=== PATIENT | female | born 1955 | race Caucasian/White ===

== ENCOUNTER 2016-11-14 15:37 | Observation (INO) | payer MEDICARE ==
[2016-11-14 15:45] VITALS: BMI 40.7
[2016-11-14] MEDS ORDERED: KETOROLAC TROMETHAMINE 30 MG/1 ML VIAL IM ONE (16:39)
--- NOTE | 2016-11-14 16:39 | PDOC ---
History of Present Illness - General Chief Complaint: Pain Stated Complaint: LT ANKLE PAIN, SWOLLEN Time Seen by Provider: 11/14/16 16:31 History Source: Patient Exam Limitations: No Limitations - History of Present Illness Initial Comments: 11/14/16 16:39 CHIEF COMPLAINT: Ankle pain HISTORY OF PRESENT ILLNESS: This is a 60 year old female with a history of borderline DM, dyslipidemia, bipolar disorder, right breast ca (s/p lumpectomy 2008, on Femara), and distant history of DVT (, 35 yrs ago) who presents complaining of non-traumatic left ankle pain and swelling for 1 1/2 weeks. She reports that the pain is worsening, limits weight bearing, and "shoots" up the leg. She denies fevers/chills or any other systemic symptoms. V/s on arrival are notable for BP 153/100. REVIEW OF SYSTEMS: GENERAL/CONSTITUTIONAL: No fever or chills. No weakness. No weight change. HEAD, EYES, EARS, NOSE AND THROAT: No change in vision. No ear pain or discharge. No sore throat. CARDIOVASCULAR: Intermittent chest pain for 3 months. RESPIRATORY: No cough, wheezing, or shortness of breath. GASTROINTESTINAL: No nausea, vomiting, diarrhea or constipation. GENITOURINARY: No dysuria, frequency, or change in urination. MUSCULOSKELETAL: See HPI. SKIN: No rash or easy bruising. NEUROLOGIC: No headache, vertigo, loss of consciousness, or loss of sensation. PSYCHIATRIC: No depression or anxiety. ENDOCRINE: No increased thirst. No abnormal weight change. HEMATOLOGIC/LYMPHATIC: No anemia, easy bleeding, or history of blood clots. ALLERGIC/IMMUNOLOGIC: No hives or skin allergy. No latex allergy. PHYSICAL EXAM: GENERAL: The patient is awake, alert, and fully oriented, in no acute distress. HEAD: Normal with no signs of trauma. ENT: Pupils equal, round and reactive to light, extraocular movements intact, sclera anicteric, conjunctiva clear. Neck supple. LUNGS: Clear to auscultation bilaterally. Normal excursion. No respiratory distress or use of accessory muscles. CV: RRR, S1/S2, no MRG. Cap refill < 2 sec. ABDOMEN: Soft, non-distended, non-tender. EXTREMITIES: Tenderness and swelling at left lateral malleolus, tenderness at left lateral calf. Pain with flexion of foot. No erythema. NEUROLOGICAL: Normal speech, normal gait. CN II-XII grossly intact. PSYCH: Normal mood, normal affect. SKIN: Warm, dry, normal turgor, no rashes or lesions noted. Past History - Past Medical History Allergies/Adverse Reactions: Allergies Allergy/AdvReac Type Severity Reaction Status Date / Time morphine AdvReac Vomiting Verified 11/14/16 15:42 Home Medications: Ambulatory Orders Lamotrigine [Lamictal] 200 mg PO DAILY 12/13/12 Letrozole [Femara -] 2.5 mg PO DAILY 12/13/12 Venlafaxine HCl [Effexor] 300 mg PO DAILY 12/13/12 Cardiac Disorders: Yes (murmur) Diabetes: Yes (BORDERLINE) GI Disorders: Yes (diverticulosis) Hypercholesterolemia: Yes Psychiatric Problems: Yes (DEPRESSION, POST TRAMATIC STRESS SYNDROME) Suicide Attempt (Hx): No Thyroid Disease: No - Surgical History Orthopedic Surgery: Yes (B/L MENISUS REPAIR, ) - Psycho/Social/Smoking Cessation Hx Anxiety: Yes Suicidal Ideation: No Smoking Status: No Smoking History: Never smoked Have you smoked in the past 12 months: No Number of Cigarettes Smoked Daily: 0 Information on smoking cessation initiated: No Hx Alcohol Use: No Drug/Substance Use Hx: No Substance Use Type: None Hx Substance Use Treatment: No *Physical Exam - Vital Signs Last Vital Signs Temp Pulse Resp BP Pulse Ox 98 F 86 18 153/100 95 11/14/16 15:42 11/14/16 15:42 11/14/16 15:42 11/14/16 15:42 11/14/16 15:42 ED Treatment Course - LABORATORY CBC & Chemistry Diagram: 11/15/16 05:35 11/15/16 05:35 - RADIOLOGY Radiology Studies Ordered: Category Date Time Status DUPLEX VASCUL US-1 LEG [US] Stat Ultrasound 11/14/16 16:38 Ordered Medical Decision Making - Medical Decision Making 11/14/16 16:49 A/P: 60 year old female with non-traumatic ankle/calf pain. 1. Ankle xray 2. Labs including CBC, comp, ESR, uric acid 3. Duplex u/s to r/o DVT 4. Toradol 30mg IM forpain 5. Re-assess 11/14/16 18:47 Ultrasound reveals DVT in the left common femoral vein per Imaging in school suspension aide report. Patient re-evaluated and now reports chest pain. Will obtain PT/INR, cardiac profile, BNP EKG ordered CTA to r/o PE ordered Lovenox 100mg sq given Will transfer to Main ED for further management - discussed with Dr. Campbell 11/14/16 19:49 Troponin <0.02 BNP within normal limits at 89 *DC/Admit/Observation/Transfer Diagnosis at time of Disposition: DVT (deep venous thrombosis) Qualifiers: DVT location: lower extremity Affected thrombotic vein of extremity: femoral Laterality: left Chronicity: acute Qualified Code(s): I82.412 - Acute embolism and thrombosis of left femoral vein - Referrals
[2016-11-14] MEDS ORDERED: KETOROLAC TROMETHAMINE 30 MG/1 ML VIAL ONE (16:48)
[2016-11-14 16:49] LABS: BASOPHIL 0.7 % (0-2.0); EOSINOPHIL 2.2 % (0-4.5); MCH 29.6 pg (25.7-33.7); MCHC 32.9 g/dl (32.0-36.0); MEAN PLT VOLUME 8.4 fl (7.5-11.1); NEUTROPHILS 55.7 % (42.8-82.8); PLATELET COUNT 298 K/MM3 (134-434); RDW 14.1 % (11.6-15.6); WHITE BLOOD COUNT 8.1 K/mm3 (4.0-10.0)
[2016-11-14 17:20] LABS: COCKROFT - GAULT 110.84; CREATININE 0.9 mg/dL (0.55-1.02); URIC ACID 3.5 mg/dL (2.6-7.2)
[2016-11-14] MEDS ORDERED: ENOXAPARIN NA (PORCINE) 100 MG/1 ML DISP.SYRIN SQ ONE ×2 (18:48→19:00)
[2016-11-14 19:15] LABS: INR 0.96 (0.82-1.09); PROTHROMBIN TIME (PATIENT) 10.6 SEC (9.98-11.88)
[2016-11-14 19:32] LABS: TROPONIN I < 0.02 ng/ml (0.00-0.05)
--- NOTE | 2016-11-14 19:52 | PDOC ---
*Physical Exam - Vital Signs Last Vital Signs Temp Pulse Resp BP Pulse Ox 98 F 86 18 153/100 95 11/14/16 15:42 11/14/16 15:42 11/14/16 15:42 11/14/16 15:42 11/14/16 15:42 Heart Score/ECG Review #1 ECG reviewed & interpreted by me at: 19:08 General ECG Interpretation: Sinus Rhythm, Normal Rate (78), Normal Intervals ( qtc 456), No acute ischemic changes ED Treatment Course - LABORATORY CBC & Chemistry Diagram: 11/14/16 16:41 11/14/16 16:41 - ADDITIONAL ORDERS Additional order review: Laboratory Results 11/14/16 11/14/16 11/14/16 18:55 18:55 16:41 INR 0.96 Sodium 142 Potassium 4.2 Chloride 105 Carbon Dioxide 31 Anion Gap 6 L BUN 13 Creatinine 0.9 Random Glucose 156 H D Uric Acid 3.5 Calcium 9.0 Creatine Kinase 124 Troponin I < 0.02 B-Natriuretic Peptide 88.96 11/14/16 16:41 RBC 4.70 MCV 90.0 MCHC 32.9 RDW 14.1 MPV 8.4 Neutrophils % 55.7 Lymphocytes % 34.5 Monocytes % 6.9 Eosinophils % 2.2 Basophils % 0.7 D - Medications Given in the ED: ED Medications Discontinued Medications Generic Name Dose Route Start Last Admin Trade Name Freq PRN Reason Stop Dose Admin Enoxaparin Sodium 100 mg 11/14/16 18:48 11/14/16 19:12 Lovenox - SQ 11/14/16 18:49 100 mg ONCE ONE Administration Ketorolac Tromethamine 30 mg 11/14/16 16:39 11/14/16 16:51 Toradol Injection - IM 11/14/16 16:40 30 mg ONCE ONE Administration Medical Decision Making - Medical Decision Making 11/14/16 19:50 Patient seen and evaluated with the nurse practitioner. I agree with the overall evaluation, assessment, and management with the following summary of visit: 60y/o presented to [facility] with atraumatic ankle swelling, diagnosed with DVT on ultrasound. Later reported chest discomfort. VS normal, started on Lovenox in [facility] for DVT. Troponin negative, EKG without signs of strain, well appearing. Plan is to admit for chest pain observation, CTA chest pending. 11/14/16 21:07 CTA negative for PE or other acute process. Accepted for obs tele by Dr. Tello for further monitoring of chest pain. *DC/Admit/Observation/Transfer Diagnosis at time of Disposition: Deep vein thrombosis (DVT) Qualifiers: DVT location: lower extremity Affected thrombotic vein of extremity: femoral Laterality: left Chronicity: acute Qualified Code(s): I82.412 - Acute embolism and thrombosis of left femoral vein - Discharge Dispostion Condition at time of disposition: Fair Admit: Yes - Referrals Referrals: Tennille Diehl [Primary Care Provider] -
--- NOTE | 2016-11-14 19:54 | HP ---
CHIEF COMPLAINT: PCP: HISTORY OF PRESENT ILLNESS: ER course was notable for: (1) (2) (3) Recent Travel: PAST MEDICAL HISTORY: PAST SURGICAL HISTORY: Social History: Smoking: Alcohol: Drugs: Family History: Allergies morphine Adverse Reaction (Verified 11/14/16 15:42) Vomiting HOME MEDICATIONS: Home Medications Medication Instructions Recorded Lamotrigine [Lamictal] 300 mg PO DAILY 12/13/12 Letrozole [Femara -] 2.5 mg PO DAILY 12/13/12 Venlafaxine HCl [Effexor] 300 mg PO DAILY 12/13/12 Aspirin [ASA -] 81 mg PO DAILY #0 tab.chew 12/16/12 Ciprofloxacin HCl [Cipro] 500 mg PO BID #14 tablet 04/19/16 Metronidazole [Flagyl -] 500 mg PO TID #21 tablet 04/19/16 REVIEW OF SYSTEMS CONSTITUTIONAL: Absent: fever, chills, diaphoresis, generalized weakness, malaise, loss of appetite, weight change HEENT: Absent: rhinorrhea, nasal congestion, throat pain, throat swelling, difficulty swallowing, mouth swelling, ear pain, eye pain, visual changes CARDIOVASCULAR: Absent: chest pain, syncope, palpitations, irregular heart rate, lightheadedness , peripheral edema RESPIRATORY: Absent: cough, shortness of breath, dyspnea with exertion, orthopnea, wheezing, stridor, hemoptysis GASTROINTESTINAL: Absent: abdominal pain, abdominal distension, nausea, vomiting, diarrhea, constipation, melena, hematochezia GENITOURINARY: Absent: dysuria, frequency, urgency, hesitancy, hematuria, flank pain, genital pain MUSCULOSKELETAL: Absent: myalgia, arthralgia, joint swelling, back pain, neck pain SKIN: Absent: rash, itching, pallor HEMATOLOGIC/IMMUNOLOGIC: Absent: easy bleeding, easy bruising, lymphadenopathy, frequent infections ENDOCRINE: Absent: unexplained weight gain, unexplained weight loss, heat intolerance, cold intolerance NEUROLOGIC: Absent: headache, focal weakness or paresthesias, dizziness, unsteady gait, seizure, mental status changes, bladder or bowel incontinence PSYCHIATRIC: Absent: anxiety, depression, suicidal or homicidal ideation, hallucinations. PHYSICAL EXAMINATION Vital Signs - 24 hr 11/14/16 15:42 Temperature 98 F Pulse Rate 86 Respiratory 18 Rate Blood Pressure 153/100 O2 Sat by Pulse 95 Oximetry (%) GENERAL: Awake, alert, and fully oriented, in no acute distress. HEAD: Normal with no signs of trauma. EYES: Pupils equal, round and reactive to light, extraocular movements intact, sclera anicteric, conjunctiva clear. No lid lag. EARS, NOSE, THROAT: Ears normal, nares patent, oropharynx clear without exudates. Moist mucous membranes. NECK: Normal range of motion, supple without lymphadenopathy, JVD, or masses. LUNGS: Breath sounds equal, clear to auscultation bilaterally. No wheezes, and no crackles. No accessory muscle use. HEART: Regular rate and rhythm, normal S1 and S2 without murmur, rub or gallop. ABDOMEN: Soft, nontender, not distended, normoactive bowel sounds, no guarding, no rebound, no masses. No hepatomegaly or splenomegaly. MUSCULOSKELETAL: Normal range of motion at all joints. No bony deformities or tenderness. No CVA tenderness. UPPER EXTREMITIES: 2+ pulses, warm, well-perfused. No cyanosis. No clubbing. No peripheral edema. LOWER EXTREMITIES: 2+ pulses, warm, well-perfused. No calf tenderness. No peripheral edema. NEUROLOGICAL: Cranial nerves II-XII intact. Normal speech. Normal gait. PSYCHIATRIC: Cooperative. Good eye contact. Appropriate mood and affect. SKIN: Warm, dry, normal turgor, no rashes or lesions noted, normal capillary refill. Laboratory Results - last 24 hr 11/14/16 11/14/16 11/14/16 16:41 16:41 18:55 WBC 8.1 RBC 4.70 Hgb 13.9 Hct 42.3 MCV 90.0 MCHC 32.9 RDW 14.1 Plt Count 298 MPV 8.4 Neutrophils % 55.7 Lymphocytes % 34.5 Monocytes % 6.9 Eosinophils % 2.2 Basophils % 0.7 D INR 0.96 Sodium 142 Potassium 4.2 Chloride 105 Carbon Dioxide 31 Anion Gap 6 L BUN 13 Creatinine 0.9 Random Glucose 156 H D Uric Acid 3.5 Calcium 9.0 Creatine Kinase Troponin I B-Natriuretic Peptide 11/14/16 18:55 WBC RBC Hgb Hct MCV MCHC RDW Plt Count MPV Neutrophils % Lymphocytes % Monocytes % Eosinophils % Basophils % INR Sodium Potassium Chloride Carbon Dioxide Anion Gap BUN Creatinine Random Glucose Uric Acid Calcium Creatine Kinase 124 Troponin I < 0.02 B-Natriuretic Peptide 88.96 ASSESSMENT/PLAN:
--- NOTE | 2016-11-14 20:01 | PN ---
<Rohit Tello - Last Filed: 11/14/16 20:01> Teaching Attending Note Name of Resident: Daphnie Trevino ATTENDING PHYSICIAN STATEMENT I saw and evaluated the patient. I reviewed the resident's note and discussed the case with the resident. I agree with the resident's findings and plan as documented. SUBJECTIVE: OBJECTIVE: ASSESSMENT AND PLAN: <Kobe Hudson - Last Filed: 11/14/16 21:28> Teaching Attending Note ATTENDING PHYSICIAN STATEMENT I saw and evaluated the patient. I reviewed the resident's note and discussed the case with the resident. I agree with the resident's findings and plan as documented. SUBJECTIVE: The patient is a 60 year old female with a history of borderline DM, dyslipidemia, bipolar disorder, depression, right breast ca (s/p lumpectomy 2008 , on Femara), and prior DVT (6 months , 35 yrs ago) who presented complaining of non-traumatic left ankle pain and edema for 1 1/2 weeks. She reported that her pain is worsening and exacerbated by movement. She reported associated intermittent chest pain. She denies fevers/chills, shortness of breath, or any other systemic symptoms. OBJECTIVE: Last Vital Signs 3 Temp Pulse Resp BP Pulse Ox 98 F 78 18 140/89 99 11/14/16 15:42 11/14/16 21:03 11/14/16 21:03 11/14/16 21:03 11/14/16 21:03 Physical Exam: GEN: NAD HEENT: NCAT, PERRL BREAST: No nodules palpated on either breast. No lymph nodes in axilla CARD: RRR, S1 S2 RESP: CTAB ABD: NT, BWS x4 EXT: - CCE Labs: CBCD 3 WBC 8.1 K/mm3 (4.0-10.0) 11/14/16 16:41 RBC 4.70 M/mm3 (3.60-5.2) 11/14/16 16:41 Hgb 13.9 GM/dL (10.7-15.3) 11/14/16 16:41 Hct 42.3 % (32.4-45.2) 11/14/16 16:41 MCV 90.0 fl (80-96) 11/14/16 16:41 MCHC 32.9 g/dl (32.0-36.0) 11/14/16 16:41 RDW 14.1 % (11.6-15.6) 11/14/16 16:41 Plt Count 298 K/MM3 (134-434) 11/14/16 16:41 MPV 8.4 fl (7.5-11.1) 11/14/16 16:41 CMP 3 Sodium 142 mmol/L (136-145) 11/14/16 16:41 Potassium 4.2 mmol/L (3.5-5.1) 11/14/16 16:41 Chloride 105 mmol/L (98-107) 11/14/16 16:41 Carbon Dioxide 31 mmol/L (21-32) 11/14/16 16:41 Anion Gap 6 (8-16) L 11/14/16 16:41 BUN 13 mg/dL (7-18) 11/14/16 16:41 Creatinine 0.9 mg/dL (0.55-1.02) 11/14/16 16:41 Calcium 9.0 mg/dL (8.5-10.1) 11/14/16 16:41 Imagin. EXAM: Venous Doppler imaging of the left lower extremity HISTORY: Possible deep venous thrombosis COMPARISON: None. FINDINGS:Spectral color flow Doppler imaging of the venous system of the left lower extremity is positive for deep venous thrombosis with thrombus seen in the left common femoral vein. IMPRESSION: Findings positive for deep venous thrombosis THIS DOCUMENT HAS BEEN ELECTRONICALLY SIGNED Yuan Blackman MD 11/14/2016 18:27 EST 2. EXAM: CT angiogram of the thorax with IV contrast HISTORY:Possible pulmonary embolism COMPARISON: None. FINDINGS:Serial transaxial images of the thorax are available following intravenous contrast agent. Sagittal and coronal reformatted imaging is available. There is no aneurysmal dilatation of the aorta nor CT evidence of aortic dissection. There is no CT evidence of pulmonary embolism. No hilar or mediastinal adenopathy is seen. The lung momin are clear of an acute process. No acute osseous abnormality is seen. IMPRESSION: No CT evidence of pulmonary embolism, aortic dissection or active disease THIS DOCUMENT HAS BEEN ELECTRONICALLY SIGNED Yuan Blackman MD 11/14/2016 20:57 EST ASSESSMENT AND PLAN: The patient is a 60 year old female with a history of borderline DM, dyslipidemia, bipolar disorder, depression, right breast ca (s/p lumpectomy 2009 , on Femara), and prior DVT (6 months , 35 yrs ago) who presented with left ankle pain found to have a left leg DVT. 1. Left leg DVT- Provoked, most like med related, but since pt had 2 DVTs would consider hypercoagulable workup - Continue Lovenox BID - Consider Eliquis in AM - Would hold Femara - Patient needs immediate follow up with oncologist. - Consider outpatient hypercoagulable workup 2. BPD - Continue Lamictal - Continue Effexor 3. HLD - Continue Crestor Place in observation. Documentation prepared by Kobe Hudson, acting as medical management specialist for Dr. Rohit Tello MD.
--- NOTE | 2016-11-14 20:19 | HP ---
CHIEF COMPLAINT: "my left ankle hurts" PCP: Dr Shannon Diehl HISTORY OF PRESENT ILLNESS: This is a 60 yo F with PMH of DVT in L leg 35 yrs ago at 6 mo post s/p thrombectomy, R brast ca stage 2 s/p lumpectomy, lymph node removal, chemo, rad , On femara for 7 yrs, HLD, diverticulosis, borderline DM, bipolar, depression, who presents due to pain and swelling in L ankle x 1.5 weeks. Patient denies trauma to ankle, states pain is progressively worsening and is aggravated by moving ankle. She denies calf pain or edema. Her prior L leg dvt was treated with short term a/c and she is unaware of any thrombophilia workup. No family hx of thrombophilia, PE, DVT or stroke. She reports mild dry cough, intermittent sternal chest pain and occasional sob for several months. denies pleuritic chest pain, hemoptysis or palpitations. Her last mammogram was 1 yr ago (does not remember name of her Oncologist) and she had a negative endoscopy (aside from reflux) and colonoscopy within 1 yr. She comlains of occasional heart burn and L hand numbness. She denies recent travel, recent surgery or hospitalization. Currently no chest pain, sob, palpitations, cough, hemoptysis. ER course was notable for: (1)labs (2)ekg, chx, ankle x ray, duplex L leg, cta (3)virgen 100, toradol Recent Travel: denies PAST MEDICAL HISTORY: as above PAST SURGICAL HISTORY: R knee replacement, b/l miniscal surgery, hysterectomy, L inguinal hernia, LLE thrombectomy, lumpectomy R breast Social History: lives at home with grandchildren Smoking: denies Alcohol:denies Drugs: denies Family History: strong history if GI CA, DM, HTN Allergies morphine Adverse Reaction (Verified 11/14/16 15:42) Vomiting HOME MEDICATIONS: Home Medications Medication Instructions Recorded Lamotrigine [Lamictal] 300 mg PO DAILY 12/13/12 Letrozole [Femara -] 2.5 mg PO DAILY 12/13/12 Venlafaxine HCl [Effexor] 300 mg PO DAILY 12/13/12 Aspirin [ASA -] 81 mg PO DAILY #0 tab.chew 12/16/12 Ciprofloxacin HCl [Cipro] 500 mg PO BID #14 tablet 04/19/16 Metronidazole [Flagyl -] 500 mg PO TID #21 tablet 04/19/16 REVIEW OF SYSTEMS CONSTITUTIONAL: Absent: fever, chills, diaphoresis, generalized weakness HEENT: Absent: rhinorrhea, nasal congestion, throat pain CARDIOVASCULAR: Absent: chest pain, syncope, palpitations, irregular heart rate, lightheadedness , RESPIRATORY: Absent: cough, shortness of breath, dyspnea with exertion, orthopnea, wheezing, stridor, hemoptysis GASTROINTESTINAL: Absent: abdominal pain, abdominal distension, nausea, vomiting, diarrhea, constipation, melena, hematochezia GENITOURINARY: Absent: dysuria, flank pain MUSCULOSKELETAL: Absent: myalgia SKIN: Absent: rash, itching, pallor HEMATOLOGIC/IMMUNOLOGIC: Absent: easy bleeding, easy bruising ENDOCRINE: Absent: unexplained weight gain, unexplained weight loss, heat intolerance, cold intolerance NEUROLOGIC: Absent: headache, focal weakness or paresthesias, dizzines PSYCHIATRIC: Absent: anxiety, depression, suicidal or homicidal ideation PHYSICAL EXAMINATION Vital Signs - 24 hr 11/14/16 15:42 Temperature 98 F Pulse Rate 86 Respiratory 18 Rate Blood Pressure 153/100 O2 Sat by Pulse 95 Oximetry (%) GENERAL: Awake, alert, and fully oriented, in no acute distress. HEAD: Normal with no signs of trauma. EYES: Pupils equal, round and reactive to light, extraocular movements intact, sclera anicteric, conjunctiva clear. No lid lag. EARS, NOSE, THROAT: Moist mucous membranes. NECK: supple without JVD, or adenopathy Breast: fibrocystic changes in L breast, R breast hardened tissure s/p rads. no discreet lumps or adenopathy LUNGS: Breath sounds equal, clear to auscultation bilaterally. No wheezes, and no crackles. No accessory muscle use. HEART: Regular rate and rhythm, normal S1 and S2 grade 2 systolic murmur ABDOMEN: Soft, nontender, not distended, normoactive bowel sounds MUSCULOSKELETAL: No CVA tenderness. UPPER EXTREMITIES: 2+ pulses, warm, well-perfused. No cyanosis. No clubbing. No peripheral edema. L wrist + tinnel sign. L hand cool, R hand warm LOWER EXTREMITIES: 2+ pulses, warm, well-perfused. No calf tenderness. L ankle tenderness aggravated by any movement, edema. NEUROLOGICAL: Cranial nerves II-XII grossly intact. Normal speech. PSYCHIATRIC: Cooperative. Good eye contact. Appropriate mood and affect. SKIN: Warm, dry, normal turgor, no rashes or lesions noted, normal capillary refill. Laboratory Results - last 24 hr 11/14/16 11/14/16 11/14/16 16:41 16:41 18:55 WBC 8.1 RBC 4.70 Hgb 13.9 Hct 42.3 MCV 90.0 MCHC 32.9 RDW 14.1 Plt Count 298 MPV 8.4 Neutrophils % 55.7 Lymphocytes % 34.5 Monocytes % 6.9 Eosinophils % 2.2 Basophils % 0.7 D INR 0.96 Sodium 142 Potassium 4.2 Chloride 105 Carbon Dioxide 31 Anion Gap 6 L BUN 13 Creatinine 0.9 Random Glucose 156 H D Uric Acid 3.5 Calcium 9.0 Creatine Kinase Troponin I B-Natriuretic Peptide 11/14/16 18:55 WBC RBC Hgb Hct MCV MCHC RDW Plt Count MPV Neutrophils % Lymphocytes % Monocytes % Eosinophils % Basophils % INR Sodium Potassium Chloride Carbon Dioxide Anion Gap BUN Creatinine Random Glucose Uric Acid Calcium Creatine Kinase 124 Troponin I < 0.02 B-Natriuretic Peptide 88.96 ASSESSMENT/PLAN: This is a 60 yo F with PMH of DVT in L leg 35 yrs ago at 6 mo post s/p thrombectomy, R brast ca stage 2 s/p lumpectomy, lymph node removal, chemo, rad , On femara for 7 yrs, HLD, diverticulosis, borderline DM, bipolar, depression, who presents due to pain and swelling in L ankle x 1.5 weeks. Provoked LLE DVT -Duplex: L CFV DVT; may be chronic due to previous thrombectomy, patient not experiencing pain in that area, however, cant r/o acute dvt -a/c with virgen 100 bid; consider NOAC -stop femara (predisposes to clots) -f/u with her heme/onc melany for thrombophilia workup L ankle pain -no fracture on X ray -may be sprain, recommend MRI outpatient L carpal Tunnel -recommend f/u with hand specialist -splint vs surgery outpatient GERD -PPI HLD -crestor 10 hs bipolar, depression -effexor 300d -lamictal 200d Borderline DM -diet controlled FEN no ivf lytes stable DM diet Dispo: OBS med inna Problem List - Problem (1) DVT (deep venous thrombosis) Code(s): I82.409 - ACUTE EMBOLISM AND THOMBOS UNSP DEEP VN UNSP LOWER EXTREMITY Qualifiers: DVT location: lower extremity Affected thrombotic vein of extremity: femoral Laterality: left Chronicity: acute Qualified Code(s): I82.412 - Acute embolism and thrombosis of left femoral vein (2) History of breast cancer Code(s): Z85.3 - PERSONAL HISTORY OF MALIGNANT NEOPLASM OF BREAST (3) HLD (hyperlipidemia) Code(s): E78.5 - HYPERLIPIDEMIA, UNSPECIFIED (4) Bipolar 1 disorder, depressed Code(s): F31.9 - BIPOLAR DISORDER, UNSPECIFIED (5) Diverticulosis Code(s): K57.90 - DVRTCLOS OF INTEST, PART UNSP, W/O PERF OR ABSCESS W/O BLEED (6) Carpal tunnel syndrome of left wrist Code(s): G56.02 - CARPAL TUNNEL SYNDROME, LEFT UPPER LIMB (7) GERD (gastroesophageal reflux disease) Code(s): K21.9 - GASTRO-ESOPHAGEAL REFLUX DISEASE WITHOUT ESOPHAGITIS Visit type - Emergency Visit Emergency Visit: Yes ED Registration Date: 11/14/16 Care time: The patient presented to the Emergency Department on the above date and was hospitalized for further evaluation of their emergent condition. - New Patient This patient is new to me today: Yes Date on this admission: 11/14/16 - Critical Care Critical Care patient: No
[2016-11-14] MEDS ORDERED: ACETAMINOPHEN 325 MG TABLET (FP) PO PRN (21:34)
[2016-11-14] MEDS ORDERED: ROSUVASTATIN CA 10 MG TABLET (FP) PO SCH (22:00)
[2016-11-15 07:10] LABS: MCH 30.5 pg (25.7-33.7); MEAN CELL VOLUME 89.9 fl (80-96); MEAN PLT VOLUME 8.9 fl (7.5-11.1); PLATELET COUNT 256 K/MM3 (134-434); RDW 14.2 % (11.6-15.6); WHITE BLOOD COUNT 7.6 K/mm3 (4.0-10.0)
[2016-11-15 07:21] LABS: INR 1.07 (0.82-1.09); PROTHROMBIN TIME (PATIENT) 11.8 SEC (9.98-11.88)
[2016-11-15 07:24] LABS: ACTIVATED PTT 39.6 SECONDS (26.9-34.4)
[2016-11-15 07:26] LABS: CALCIUM 8.7 mg/dL (8.5-10.1); COCKROFT - GAULT 142.511; CREATININE 0.7 mg/dL (0.55-1.02)
[2016-11-15] MEDS ORDERED: PT OWN MED DRAWER 7, Y5N ONE (08:59)
[2016-11-15] MEDS ORDERED: lamoTRIgine 100 MG TABLET (FP) PO SCH (10:00)
[2016-11-15] MEDS ORDERED: VENLAFAXINE HCL 150 MG E.R. CAPSULE PO SCH (10:00)
[2016-11-15] MEDS ORDERED: PANTOPRAZOLE 40 MG TABLET (FP) PO SCH (10:00)
[2016-11-15] MEDS ORDERED: VENLAFAXINE HCL 75 MG E.R. CAPSULES (FP) PO SCH (10:00)
[2016-11-15] MEDS ORDERED: ENOXAPARIN NA (PORCINE) 100 MG/1 ML DISP.SYRIN SQ SCH (10:00)
--- NOTE | 2016-11-15 10:54 | EKG ---
Test Reason : Blood Pressure : / mmHG Vent. Rate : 078 BPM Atrial Rate : 078 BPM P-R Int : 176 ms QRS Dur : 104 ms QT Int : 400 ms P-R-T Axes : 046 054 060 degrees QTc Int : 456 ms NORMAL SINUS RHYTHM WITH SINUS ARRHYTHMIA NORMAL ECG Confirmed by MD CALLIE, ANDREI ([id number]) on 11/15/2016 10:53:46 AM Referred By: Confirmed By:ANDREI LEDESMA MD
[2016-11-15 11:07] VITALS: BP 128/66; PULSE 82; TEMP 99
--- NOTE | 2016-11-15 12:28 | DS ---
Physical Examination Vital Signs: Vital Signs Temperature 99 F 11/15/16 10:00 Pulse Rate 82 11/15/16 10:00 Respiratory Rate 20 11/15/16 10:00 Blood Pressure 128/66 11/15/16 10:00 O2 Sat by Pulse Oximetry (%) 95 11/15/16 05:24 Findings/Remarks: denies any CP now or SOB. has no fever or chills. reports sharp CP occasionally , in middle of chest whic lasts seconds. she sometimes experiences L shoulder dull ach, which is worse when she push on it . improves with massage. no exertional CP Constitutional: Yes: No Distress, Calm, Obese Eyes: Yes: Conjunctiva Clear, EOM Intact HENT: Yes: Atraumatic, Normocephalic Neck: Yes: Supple Cardiovascular: Yes: Regular Rate and Rhythm, S1, S2. No: JVD, Murmur, Rub Respiratory: Yes: Regular, CTA Bilaterally Gastrointestinal: Yes: Normal Bowel Sounds, Soft, Abdomen, Obese. No: Tenderness Breast(s): Yes: Left (no masses, or LAP in axilla, no skin or nipple chanes.), Right (small surgical scar in right upper area. no masses, or LAP in axilla, no skin or nipple chanes.) Extremities: Yes: Other (no edema or erythema on LE . TTP onmedial L thigh . DP 2+ b/l . fullness over ankles, no restiction in range of motion) Neurological: Yes: Alert, Oriented Labs: CBC, BMP 11/15/16 05:35 11/15/16 05:35 Discharge Summary Reason For Visit: DEEP VEIN THROMBOSIS(DVT),PRECORDIAL PAIN Current Active Problems DVT (deep venous thrombosis) (Acute) Bipolar 1 disorder, depressed (Chronic) Hospital Course: 60 y/o pleasant lady with h/o DVT 4 months post > 30 yr ago s/p thrombectomy, HLP, and breast cancer status post lumpectomy/chemo /radiation , who presented with swelling in L ankle . she was found to have L common femoral vein DVT At presentation, she had US of LE , which showed Common femoral vein DVT. and Due to her intermittent sharp cp she described , she had CT of chest which showed no PE. HE rvitals remained satble. L ankle xray showed OA , and no Fx . She was started on Lovenox for DVT. After discussing all the options of AC with her , the decision was made to continue Lovenox . she refused coumadin. NOACs are not recommended for extreme weights( BMI > 40) as per The International Society on Thrombosis and Haemostasis. Her BMI 40.7. The duration of AC, will depend on weather the DVT is provoked ( due to Femara, which can cause thrombosis ) , or due to active cancer. Although , I did not feel any masses in breasts or axillae, she will need further w/u per her order booker to determine if her cancer has come back or metastasized . therefore, duration is to be determined per her oncologist. She was asked to stop Femara. Of note ,she did not have any signs of neuro vascular compromise of her LE Her Co she described , was not concerning for ACS, and it sounded more like MS. her EKG was nl , and trop nlx 1. CTA showed no PE. she might need a stress test as outpt . Dispo : Home condition : improved f/u PCP , and Heme. Condition: Stable - Instructions Diet, Activity, Other Instructions: - please follow with Dr. Lamas, your oncologist, for determination on duration of anticoagulation ( medication provoked, or active cancer ) - follow with your PCP regarding , as you might need a stress test - please monitor for any bleeding ( stool, gum, urine , etc) - avoid falls. - Lovenox, was sent to your pharamcey ( [facility] ) . a month supply was provided , your order booker will need to give refills - your order booker will determine if you need repeat Ultrasound of legs or not - Stop Femara Lauro woods Referrals: Margarito Lamas MD [Staff Physician] - 1 Week Tennille Diehl [Primary Care Provider] - 1 Week Disposition: HOME - Home Medications Comprehensive Discharge Medication List: Ambulatory Orders Lamotrigine [Lamictal] 200 mg PO DAILY 12/13/12 Venlafaxine HCl [Effexor] 300 mg PO DAILY 12/13/12 Enoxaparin [Lovenox -] 100 mg SQ BID #60 syr 11/15/16 Simvastatin [Zocor -] 5 mg PO HS 11/15/16 This patient is new to me today: Yes Date on this admission: 11/15/16 Emergency Visit: Yes ED Registration Date: 11/14/16 Care time: The patient presented to the Emergency Department on the above date and was hospitalized for further evaluation of their emergent condition. Critical Care patient: No - Discharge Referral Referred to [facility] No
== END 2016-11-15 13:52 | disposition home or self-care (01) ==
LOC: JERFT 15:37 → JER 15:37 → JERBED 21:06 → J4W 22:21
PROVIDERS: ADMIT Internal Medicine; ATTEND Internal Medicine
PROC: 3E013GC Introduction of Other Therapeutic Substance into Subcutaneous Tissue, Percutaneous Approach (ICD-10-PCS; principal; 2016-11-14)
PROC: 3E023GC Introduction of Other Therapeutic Substance into Muscle, Percutaneous Approach (ICD-10-PCS; 2016-11-14)
DX: I82.412 Acute embolism and thrombosis of left femoral vein (principal); E78.5 Hyperlipidemia, unspecified; F31.9 Bipolar disorder, unspecified; F43.10 Post-traumatic stress disorder, unspecified; F41.9 Anxiety disorder, unspecified; R73.03 Prediabetes; R01.1 Cardiac murmur, unspecified; K57.90 Diverticulosis of intestine, part unspecified, without perforation or abscess without bleeding; G56.02 Carpal tunnel syndrome, left upper limb; K21.9 Gastro-esophageal reflux disease without esophagitis; Z96.652 Presence of left artificial knee joint; Z88.8 Allergy status to other drugs, medicaments and biological substances; Z85.3 Personal history of malignant neoplasm of breast; Z90.710 Acquired absence of both cervix and uterus; Z98.890 Other specified postprocedural states; Z79.01 Long term (current) use of anticoagulants
CPT/HCPCS: 36415; 71275-TC; 73610-TC-LT; 73630-TC-LT; 80048; 82550; 83880; 84484; 84550; 85025; 85027; 85610; 85730; 93005; 93010; 93971-TC; 99284-25; G0378

== ENCOUNTER 2017-01-24 09:54 | Emergency (ER) | payer MEDICARE, OTHER ==
[2017-01-24 09:59] VITALS: BMI 49.6
--- NOTE | 2017-01-24 10:28 | PDOC ---
Attending Attestation - Resident Resident Name: JudyTraci <Odilon Pleitez - Last Filed: 01/24/17 10:27> - Resident Resident Name: JudyTraci - ED Attending Attestation I have performed the following: I have examined & evaluated the patient, The case was reviewed & discussed with the resident, I agree w/resident's findings & plan, Exceptions are as noted - HPI HPI: 01/24/17 12:59 Patient is here for 3 reasons. 1.Right sided abdominal pain 2. Feeling lightheaded 3. Out of psych meds due to insurance glitch. - Physicial Exam PE: 01/24/17 12:59 PE: General: awake, alert, oriented. In no acute distress. no focal deficits. Abdomen: right sided lower quad tenderness. No peritoneal signs. Extremities: no clinical evid of DVT bilaterally. No Hoemans. No Keegan. - Medical Decision Making 01/24/17 12:59 Simple lab workup. Clinical supportive care will reassess need of rimaging when lab values are returned. <Tito Engel - Last Filed: 01/24/17 13:00>
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
[2017-01-24 11:10] LABS: BASOPHIL 0.6 % (0-2.0); EOSINOPHIL 0.4 % (0-4.5); MCH 30.7 pg (25.7-33.7); MCHC 33.5 g/dl (32.0-36.0); MEAN CELL VOLUME 91.7 fl (80-96); MEAN PLT VOLUME 8.6 fl (7.5-11.1); NEUTROPHILS 71.2 % (42.8-82.8); PLATELET COUNT 301 K/MM3 (134-434); RDW 13.9 % (11.6-15.6); WHITE BLOOD COUNT 7.9 K/mm3 (4.0-10.0)
[2017-01-24 11:25] LABS: ANION GAP 8 (8-16); CALCIUM 9.1 mg/dL (8.5-10.1); CO2 25 mmol/L (21-32); CREATININE 0.7 mg/dL (0.55-1.02); GLUCOSE,RANDOM 140 mg/dL (74-106)
[2017-01-24 11:26] LABS: INR 1.09 (0.82-1.09)
[2017-01-24 11:29] LABS: ACTIVATED PTT 36.7 SECONDS (26.9-34.4)
[2017-01-24 11:36] LABS: URINE APPEARANCE CLOUDY; URINE BILIRUBIN NEGATIVE (NEGATIVE); URINE BLOOD NEGATIVE (NEGATIVE); URINE COLOR DKYELLOW; URINE GLUCOSE (UA) NEGATIVE (NEGATIVE); URINE KETONE TRACE (NEGATIVE); URINE LEUK ESTERASE TRACE (NEGATIVE); URINE NITRITE NEGATIVE (NEGATIVE); URINE UROBILINOGEN NEGATIVE mg/dL (0.2-1.0)
[2017-01-24] MEDS ORDERED: ONDANSETRON 4 MG/2 ML VIAL IVPB ONE (11:56)
[2017-01-24] MEDS ORDERED: SODIUM CHLORIDE 0.9% 1000 ML INFUS.BAG IV ONE (11:56)
[2017-01-24] MEDS ORDERED: ONDANSETRON 4 MG/2 ML VIAL ONE (11:58)
[2017-01-24 12:02] LABS: URINE PROTEIN 1+ (NEGATIVE)
[2017-01-24 12:04] LABS: URINE BACTERIA RARE /hpf (NONE SEEN); URINE MUCUS RARE; URINE RBC 2 /hpf (0-3); URINE WBC 3 /hpf (3-5)
[2017-01-24 15:01] VITALS: BP 127/78; PULSE 90; TEMP 98.1
--- NOTE | 2017-01-24 16:20 | EKG ---
Test Reason : Blood Pressure : / mmHG Vent. Rate : 082 BPM Atrial Rate : 082 BPM P-R Int : 164 ms QRS Dur : 098 ms QT Int : 426 ms P-R-T Axes : 043 039 062 degrees QTc Int : 497 ms NORMAL SINUS RHYTHM POSSIBLE LEFT ATRIAL ENLARGEMENT NONSPECIFIC T WAVE ABNORMALITY ABNORMAL ECG WHEN COMPARED WITH ECG OF 14-NOV-2016 19:08, NONSPECIFIC T WAVE ABNORMALITY NOW EVIDENT IN ANTERIOR LEADS Confirmed by UYEN BARBER MD ([id number]) on 01/24/2017 4:20:21 PM Referred By: Confirmed By:UYEN BARBER MD
== END 2017-01-24 15:13 | disposition home or self-care (01) ==
LOC: JER 09:54
PROC: 3E033GC Introduction of Other Therapeutic Substance into Peripheral Vein, Percutaneous Approach (ICD-10-PCS; principal; 2017-01-24)
DX: R10.84 Generalized abdominal pain (principal); I25.119 Atherosclerotic heart disease of native coronary artery with unspecified angina pectoris; I10 Essential (primary) hypertension; K21.9 Gastro-esophageal reflux disease without esophagitis; F43.10 Post-traumatic stress disorder, unspecified; F31.9 Bipolar disorder, unspecified; Z85.3 Personal history of malignant neoplasm of breast; Z86.718 Personal history of other venous thrombosis and embolism; Z79.01 Long term (current) use of anticoagulants; Z91.14 Patient's other noncompliance with medication regimen
CPT/HCPCS: 36415; 80048; 81003; 81015; 85025; 85379; 85610; 85730; 93005; 93010; 96374; 99283-25

== ENCOUNTER 2017-05-09 10:02 | Emergency (ER) | payer OTHER ==
[2017-05-09 10:10] VITALS: BP 121/72; PULSE 95; TEMP 97.5; BMI 47.8
[2017-05-09] MEDS ORDERED: KETOROLAC TROMETHAMINE 30 MG/1 ML VIAL IM ONE (10:53)
[2017-05-09] MEDS ORDERED: DEXAMETHASONE LIQUID 0.5 MG/5 ML 240 ML BULK BOTTLE PO ONE (10:53)
[2017-05-09] MEDS ORDERED: DEXAMETHASONE SOD PHOSPHATE 10 MG/1 ML VIAL ONE (10:59)
[2017-05-09] MEDS ORDERED: KETOROLAC TROMETHAMINE 30 MG/1 ML VIAL ONE (10:59)
--- NOTE | 2017-05-09 11:04 | PDOC ---
History of Present Illness - General Chief Complaint: Sore Throat Stated Complaint: SORE THROAT Time Seen by Provider: 05/09/17 10:37 History Source: Patient Exam Limitations: No Limitations - History of Present Illness Initial Comments: 05/09/17 10:55 This is a 61-year-old woman with past medical history of breast cancer status post lumpectomy, GERD who presents to emergency department today with 10 days of dry cough and 76 sore throat. Patient reports that she had 2 episodes of vomiting approximately 4 days ago. She states she lives with 2 grandchildren and the grandsons have been exhibiting similar symptoms. Both children were diagnosed with viral infections. She denies any fevers, chills, chest pain, shortness of breath, abdominal pain, dysuria. PMD: Dr. Diehl PMH: Breast CA, GERD PSH: Lumpectomy Patient denies any recent travel outside do not states her contact with anyone or traveled outside do not fit within the past 30 days. Past History - Past Medical History Allergies/Adverse Reactions: Allergies Allergy/AdvReac Type Severity Reaction Status Date / Time morphine AdvReac Vomiting Verified 05/09/17 10:08 Home Medications: Ambulatory Orders Lamotrigine [Lamictal] 200 mg PO DAILY 12/13/12 Venlafaxine HCl [Effexor] 300 mg PO DAILY 12/13/12 Enoxaparin [Lovenox -] 100 mg SQ BID #60 syr 11/15/16 Simvastatin [Zocor -] 5 mg PO HS 11/15/16 Ondansetron HCl [Zofran] 8 mg PO DAILY #9 tablet 01/24/17 Cancer: Yes (breast Ca) Cardiac Disorders: Yes (ANGINA) COPD: No Diabetes: Yes (BORDERLINE) GI Disorders: Yes (diverticulosis) Hypercholesterolemia: Yes Psychiatric Problems: Yes (DEPRESSION, POST TRAMATIC STRESS SYNDROME, BIPOLAR) Thyroid Disease: No - Surgical History Orthopedic Surgery: Yes (B/L MENISUS REPAIR, ) - Suicide/Smoking/Psychosocial Hx Smoking Status: No Smoking History: Never smoked Have you smoked in the past 12 months: No Number of Cigarettes Smoked Daily: 0 Information on smoking cessation initiated: No Hx Alcohol Use: No Drug/Substance Use Hx: No Substance Use Type: None Hx Substance Use Treatment: No Review of Systems - Review of Systems Able to Perform ROS?: Yes Is the patient limited Czech proficient: No Constitutional: Yes: Loss of Appetite HEENTM: Yes: See HPI Respiratory: Yes: See HPI Cardiac (ROS): No: Symptoms Reported ABD/GI: Yes: See HPI : No: Symptoms Reported Musculoskeletal: No: Symptoms Reported Integumentary: No: Symptoms Reported Neurological: No: Symptoms reported *Physical Exam - Vital Signs Last Vital Signs Temp Pulse Resp BP Pulse Ox 97.5 F L 95 H 18 121/72 100 05/09/17 10:06 05/09/17 10:06 05/09/17 10:06 05/09/17 10:06 05/09/17 10:06 - Physical Exam General Appearance: Yes: Appropriately Dressed. No: Apparent Distress HEENT: positive: EOMI, RASHAD, TMs Normal, Muffled/Hoarse voice, Pharyngeal Erythema. negative: Tonsillar Exudate, Tonsillar Erythema, Excessive drooling, Thrush Neck: positive: Trachea midline, Supple. negative: Tender Respiratory/Chest: positive: Lungs Clear, Normal Breath Sounds. negative: Chest Tender, Respiratory Distress, Accessory Muscle Use Cardiovascular: positive: Regular Rhythm, Regular Rate, S1, S2. negative: Edema , JVD, Murmur Gastrointestinal/Abdominal: positive: Normal Bowel Sounds, Soft. negative: Tender Musculoskeletal: positive: Normal Inspection. negative: CVA Tenderness Extremity: positive: Normal Capillary Refill, Normal Inspection, Normal Range of Motion Integumentary: positive: Normal Color, Dry, Warm Neurologic: positive: casting coordinator II-XII NML intact, Fully Oriented, Alert, Normal Mood/ Affect, Normal Response, Motor Strength 5/5 Medical Decision Making - Medical Decision Making 05/09/17 10:59 A/P: 7-year-old woman with past medical history of breast cancer status post lumpectomy and GERD with 10 days of dry cough and 7 days of sore throat. Her 2 grandsons have been exhibiting similar symptoms and have been diagnosed with viral illnesses. Both grandchildren had negative rapid Strep testing. Examination reveals pearly sanchez tympanic membranes with appropriate light reflex. No bulging or retractions noted. Oropharynx reveals pharyngeal erythema with swelling noted. There is no tonsillar erythema or exudate present. Patient' s voice is hoarse. There is no anterior or posterior cervical lymphadenopathy present. Respirations are even and unlabored without a sensory muscle use. Lungs clear to auscultation bilaterally. RRR. S1 and S2 present. No murmur, rub or gallop noted. Normoactive bowel sounds. Abdomen soft nontender nondistended. Moves all extremities 4 with strength 5/5 in all extremities. Differential diagnoses include influenza versus other viral illness I will obtain influenza nasopharyngeal swabs for testing. I will give the patient 30 mg of Toradol IM now and 10 mg of Decadron by mouth now. I will reevaluate the patient after testing is completed. 05/09/17 11:30 Influenza testing is negative. Patient feels better and is requesting discharge. *DC/Admit/Observation/Transfer Diagnosis at time of Disposition: Viral illness - Discharge Dispostion Disposition: HOME Condition at time of disposition: Stable Admit: No - Referrals Referrals: Tennille Diehl [Primary Care Provider] - - Patient Instructions Additional Instructions: Drink plenty of fluids. Take Tylenol or Motrin as directed by noodle press operator's instructions for fever or pain. Return to ER for drooling, difficulty swallowing, shortness of breath, chest pain or any other concerns. Thank you for choosing us to provide your emergent healthcare needs. - Post Discharge Activity
== END 2017-05-09 11:35 | disposition home or self-care (01) ==
LOC: JERFT 10:02
PROC: 3E0233Z Introduction of Anti-inflammatory into Muscle, Percutaneous Approach (ICD-10-PCS; principal; 2017-05-09)
DX: B34.9 Viral infection, unspecified (principal); E11.9 Type 2 diabetes mellitus without complications; E78.00 Pure hypercholesterolemia, unspecified; F31.9 Bipolar disorder, unspecified; F43.10 Post-traumatic stress disorder, unspecified; Z85.3 Personal history of malignant neoplasm of breast; Z87.19 Personal history of other diseases of the digestive system
CPT/HCPCS: 87804; 96372; 99281-25

== ENCOUNTER 2018-11-30 19:35 | Emergency (ER) | payer OTHER | END 2018-11-30 21:30 | disposition home or self-care (01) | LOC: JERFT 19:35 ==

== ENCOUNTER 2019-05-17 15:39 | Observation (INO) | payer OTHER ==
--- NOTE | 2019-05-17 15:52 | PDOC ---
Rapid Medical Evaluation Chief Complaint: Chest Pain Time Seen by Provider: 05/17/19 15:49 Medical Evaluation: Allergies Allergy/AdvReac Type Severity Reaction Status Date / Time morphine AdvReac Vomiting Verified 05/17/19 15:50 Vital Signs Temp Pulse Resp BP Pulse Ox 97.8 F 83 19 143/64 99 05/17/19 15:46 05/17/19 15:46 05/17/19 15:46 05/17/19 15:46 05/17/19 15:46 05/17/19 15:50 Pt with complaints of: pinching sensation x 1hr followed by dizziness and pressure like discomfort to frontal region Pt on brief exam: vss, lcta, ambulatory pt ordered for: cardiac w/u pt to proceed to the ED Discharge Disposition - Diagnosis Chest pain - Referrals - Patient Instructions - Post Discharge Activity
[2019-05-17 16:21] LABS: BASO % 1.2 % (0-2.0); EOS % 2.6 % (0-4.5); HEMOGLOBIN 14.9 GM/dL (10.7-15.3); LYMPH % 36.8 % (8-40); MCH 30.4 pg (25.7-33.7); MCHC 33.2 g/dl (32.0-36.0); MEAN CELL VOLUME 91.7 fl (80-96); MEAN PLT VOLUME 8.9 fl (7.5-11.1); MONO % 8.2 % (3.8-10.2); NEUT % 51.2 % (42.8-82.8); PLATELET COUNT 284 K/MM3 (134-434); RBC 4.91 M/mm3 (3.60-5.2); RDW 13.8 % (11.6-15.6); WHITE BLOOD COUNT 7.7 K/mm3 (4.0-10.0)
[2019-05-17 16:53] LABS: ALBUMIN 3.8 g/dl (3.4-5.0); ALK PHOS 112 U/L (45-117); ANION GAP 6 MMOL/L (8-16); BILIRUBIN,TOTAL 0.2 mg/dL (0.2-1); BLOOD UREA NITROGEN 15.7 mg/dL (7-18); CALCIUM 8.8 mg/dL (8.5-10.1); CHLORIDE 107 mmol/L (98-107); CO2 25 mmol/L (21-32); CREATININE 0.7 mg/dL (0.55-1.3); GLUCOSE,RANDOM 95 mg/dL (74-106); MAGNESIUM 2.2 mg/dL (1.8-2.4); POTASSIUM 4.4 mmol/L (3.5-5.1); SGOT/AST 16 U/L (15-37); SGPT/ALT 24 U/L (13-61); SODIUM 139 mmol/L (136-145); TOT PROT 7.2 g/dl (6.4-8.2)
--- NOTE | 2019-05-17 17:05 | PDOC ---
History of Present Illness - General Chief Complaint: Chest Pain Stated Complaint: CHEST PAIN Time Seen by Provider: 05/17/19 15:49 History Source: Patient Exam Limitations: No Limitations - History of Present Illness Initial Comments: 05/17/19 17:05 Patient is a 63 year old with PMH of DVTx2 (>30 years ago s/p thrombectomy and in 2016, started on Lovenox), R breast CA s/p lumpectomy/chemo/radiation (in remission), HLD, pre-diabetes, bipolar disorder who presents with chest pain x1 week. Chest pain is midsternal and intermittent which she describes as sharp and "pins and needles". She denies any identifiable alleviating or exacerbating factors. Today, while driving, she began experiencing more intense, sharp and pressure-like chest pain associated with back pain that felt like she was "punched in the back". She started having heavy breathing, lightheadedness and the sensation she would fall asleep. She denies any associated nausea, palpitations, diaphoresis, numbness or tingling. No recent travel, surgery, or immobilization. She denies a history of any heart disease or PE's. Of note, she had a L common femoral DVT in October 2016 and was started on 100mg lovenox BID. Pt states she does not take this medication anymore and last saw her PCP one year ago. Pt endorses calf tenderness BL but this pain is not new and is her baseline. Denies family hx of heart disease in parents or siblings. Denies cigarette or alcohol use. Pt's only medications at this time are asa, statin, lamotrigine, and effexor. 05/17/19 17:08 Past History - Past Medical History Allergies/Adverse Reactions: Allergies Allergy/AdvReac Type Severity Reaction Status Date / Time morphine AdvReac Vomiting Verified 05/17/19 15:50 Home Medications: Ambulatory Orders Venlafaxine HCl [Effexor] 300 mg PO DAILY 12/13/12 Simvastatin [Zocor -] 10 mg PO HS 11/15/16 Aspirin [Aspirin EC] 81 mg PO DAILY 05/17/19 Lamotrigine 25 mg PO DAILY 05/17/19 Cancer: Yes (breast Ca) Cardiac Disorders: Yes (ANGINA) Hx Myocardial Infarction: No COPD: No DVT: Yes Diabetes: Yes (BORDERLINE) GI Disorders: Yes (diverticulosis) Hypercholesterolemia: Yes Psychiatric Problems: Yes (DEPRESSION, POST TRAMATIC STRESS SYNDROME, BIPOLAR) Thyroid Disease: No - Surgical History Orthopedic Surgery: Yes (B/L MENISUS REPAIR, ) - Psycho Social/Smoking Cessation Hx Smoking Status: No Smoking History: Never smoked Have you smoked in the past 12 months: No Number of Cigarettes Smoked Daily: 0 Information on smoking cessation initiated: No Hx Alcohol Use: No Drug/Substance Use Hx: No Substance Use Type: None Hx Substance Use Treatment: No Review of Systems - Review of Systems Able to Perform ROS?: Yes Constitutional: Yes: Chills. No: Symptoms Reported, See HPI, Diaphoresis, Fever , Loss of Appetite, Malaise, Night Sweats, Weakness, Weight Stable, Unintentional Wgt. Loss, Unexplained wgt Loss, Other HEENTM: No: Symptoms Reported, See HPI, Eye Pain, Blurred Vision, Tearing, Recent change in vision, Double Vision, Cataracts, Ear Pain, Ocular Prothesis, Ear Discharge, Nose Pain, Nose Congestion, Tinnitus, Nose Bleeding, Hearing Loss , Throat Pain, Throat Swelling, Mouth Pain, Dental Problems, Difficulty Swallowing, Mouth Swelling, Other Respiratory: Yes: Shortness of Breath (Deep, heavy breathing). No: Symptoms reported, See HPI, Cough, Orthopnea, SOB with Exertion, SOB at Rest, Stridor, Wheezing, Productive cough, Hemoptysis, Other Cardiac (ROS): Yes: Chest Pain, Lightheadedness, Chest Tightness. No: Symptoms Reported, See HPI, Edema, Irregular Heart Rate, Palpitations, Syncope, Other ABD/GI: No: Symptoms Reported, See HPI, Abdominal Distended, Abd. Pain w/ defecation, Blood Streaked Bowels, Constipated, Diarrhea, Difficulty Swallowing , Nausea, Poor Appetite, Poor Fluid Intake, Rectal Bleeding, Vomiting, Indigestion, Abdominal cramping, Tarry Stools, Other : No: Symptoms Reported, See HPI, Burning, Dysuria, Discharge, Frequency, Flank Pain, Hematuria, Incontinence, Pain, Urgency, Testicular Mass, Testicular Swelling, Lesions, Testicular Pain, Other Musculoskeletal: No: Symptoms Reported, See HPI, Back Pain, Gout, Joint Pain, Joint Swelling, Muscle Pain, Muscle Weakness, Neck Pain, Joint Stiffness, Other Integumentary: No: Symptoms Reported, See HPI, Bruising, Change in Color, Change in Hair/Nails, Dryness, Erythema, Flushing, Lesions, Lumps, Pallor, Pruritus, Rash, Sweating, Other Neurological: Yes: Headache. No: Symptoms reported, See HPI, Numbness, Paresthesia, Pre-Existing Deficit, Seizure, Tingling, Tremors, Weakness, Unsteady Gait, Ataxia, Dizziness, Other *Physical Exam - Vital Signs Last Vital Signs Temp Pulse Resp BP Pulse Ox 97.8 F 83 19 143/64 99 05/17/19 15:46 05/17/19 15:46 05/17/19 15:46 05/17/19 15:46 05/17/19 15:46 - Physical Exam General Appearance: Yes: Nourished, Appropriately Dressed HEENT: positive: EOMI, RASHAD, Normal ENT Inspection Neck: positive: Trachea midline. negative: Tender Respiratory/Chest: positive: Lungs Clear, Normal Breath Sounds. negative: Chest Tender, Respiratory Distress, Accessory Muscle Use, Crackles, Wheezing Cardiovascular: positive: Regular Rhythm, Regular Rate, S1, S2. negative: Edema , JVD, Murmur Vascular Pulses: Dorsalis-Pedis (R): 2+, Doralis-Pedis (L): 2+ Musculoskeletal: positive: Normal Inspection Extremity: positive: Normal Capillary Refill, Tender (Calf tenderness BL). negative: Pedal Edema Neurologic: positive: clinical care coordinator II-XII NML intact, Fully Oriented, Alert, Normal Mood/ Affect, Normal Response, Motor Strength 5/5 ED Treatment Course - LABORATORY CBC & Chemistry Diagram: 05/17/19 16:10 05/17/19 16:10 - ADDITIONAL ORDERS Additional order review: Laboratory Results 05/17/19 16:10 Sodium 139 Potassium 4.4 Chloride 107 Carbon Dioxide 25 Anion Gap 6 L BUN 15.7 Creatinine 0.7 Est GFR (CKD-EPI)AfAm 107.62 Est GFR (CKD-EPI)NonAf 92.86 Random Glucose 95 Calcium 8.8 Magnesium 2.2 Total Bilirubin 0.2 AST 16 ALT 24 Alkaline Phosphatase 112 Creatine Kinase 122 Troponin I < 0.02 Total Protein 7.2 Albumin 3.8 05/17/19 16:10 RBC 4.91 MCV 91.7 MCHC 33.2 RDW 13.8 MPV 8.9 Neutrophils % 51.2 D Lymphocytes % 36.8 D Monocytes % 8.2 Eosinophils % 2.6 D Basophils % 1.2 Medical Decision Making - Medical Decision Making 05/17/19 17:28 HEART Score: 3 Well's Score for DVT: 2 Well's Score for PE: 7.5 - EKG, trops - CBC, CMP - CTA and duplex >>Give 325mg asa 05/17/19 17:42 CBC/CMP wnl EKG: NSR @ 82, no st elevations, ischemic changes Initial trop: neg 05/17/19 18:16 CXR: no pulmonary infiltrates or pleural effusions. no acute pathology 05/17/19 18:43 Duplex US: no evidence of DVT Discharge - Discharge Information Clinical Impression/Diagnosis: Chest pain - Follow up/Referral Referrals: Lou Dawson MD [Primary Care Provider] - - Patient Discharge Instructions - Post Discharge Activity
[2019-05-17] MEDS ORDERED: ASPIRIN 325 MG ENTERIC COATED TABLET (FP) PO ONE (17:21)
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
[2019-05-17] MEDS ORDERED: ASPIRIN 325 MG ENTERIC COATED TABLET (FP) ONE (17:25)
--- NOTE | 2019-05-17 19:08 | PDOC ---
*Physical Exam - Vital Signs Last Vital Signs Temp Pulse Resp BP Pulse Ox 97.8 F 78 16 154/83 100 05/17/19 15:46 05/17/19 17:25 05/17/19 17:25 05/17/19 17:25 05/17/19 17:25 Heart Score/ECG Review - History History: Moderately suspicious - Electrocardiogram EKG: Normal - Age Age: 45-65 - Risk Factors Risk Factors Heart Score: Yes Hx Hypercholesterolemia Based on the list above the patient has:: 1-2 risk factors - Troponin Troponin: </= normal limit - Score Heart Score - Total: 3 ED Treatment Course - LABORATORY CBC & Chemistry Diagram: 05/17/19 16:10 05/17/19 16:10 - ADDITIONAL ORDERS Additional order review: Laboratory Results 05/17/19 16:10 Sodium 139 Potassium 4.4 Chloride 107 Carbon Dioxide 25 Anion Gap 6 L BUN 15.7 Creatinine 0.7 Est GFR (CKD-EPI)AfAm 107.62 Est GFR (CKD-EPI)NonAf 92.86 Random Glucose 95 Calcium 8.8 Magnesium 2.2 Total Bilirubin 0.2 AST 16 ALT 24 Alkaline Phosphatase 112 Creatine Kinase 122 Troponin I < 0.02 Total Protein 7.2 Albumin 3.8 05/17/19 16:10 RBC 4.91 MCV 91.7 MCHC 33.2 RDW 13.8 MPV 8.9 Neutrophils % 51.2 D Lymphocytes % 36.8 D Monocytes % 8.2 Eosinophils % 2.6 D Basophils % 1.2 - Medications Given in the ED: ED Medications Discontinued Medications Generic Name Dose Route Start Last Admin Trade Name Freq PRN Reason Stop Dose Admin Aspirin 325 mg 05/17/19 17:21 05/17/19 17:45 Ecotrin - PO 05/17/19 17:22 325 mg ONCE ONE Administration Medical Decision Making - Medical Decision Making 05/17/19 19:07 received sign out from day team h/o DVT x2; not on LVX w/ poor f/u CXR, Duplex neg EKG 05/17/19 15:41 HR 82 IL 134 QRS 96 QTc 439 NSR; poor baseline - f/u CTA - admit Vital Signs Temp Pulse Resp BP Pulse Ox 97.8 F 78 16 154/83 100 05/17/19 15:46 05/17/19 17:25 05/17/19 17:25 05/17/19 17:25 05/17/19 17:25 Allergies Allergy/AdvReac Type Severity Reaction Status Date / Time morphine AdvReac Vomiting Verified 05/17/19 15:50 05/17/19 20:32 CTA neg for PE; study limited cannot exclude distal PE. Admit tele-obs 05/17/19 21:13 discussed pt w/ Dr. Israel who requested Hospitalists for obs. 05/17/19 22:00 HEART Score 3 Endorsed to MAR; tele-obs Discharge - Discharge Information Problems reviewed: Yes Clinical Impression/Diagnosis: Chest pain Qualifiers: Chest pain type: unspecified Qualified Code(s): R07.9 - Chest pain, unspecified - Follow up/Referral Referrals: Lou Dawson MD [Primary Care Provider] - - Patient Discharge Instructions - Post Discharge Activity
[2019-05-17 20:48] LABS: INR 0.98 (0.83-1.09); PROTHROMBIN TIME (PATIENT) 11.6 SEC (9.7-13.0)
[2019-05-17 20:50] LABS: ACTIVATED PTT 35.4 SECONDS (25.2-36.5)
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
--- NOTE | 2019-05-18 01:57 | HP ---
CHIEF COMPLAINT: Chest pain PCP: Dr. Lou Dawson HISTORY OF PRESENT ILLNESS: 63 year old female with PMHx of 2 prior DVTs s/p thrombectomy (last DVT October 2016), R. breast cancer s/p lumpectomy 10 years ago, PTSD, Bipolar disorder (on Lamotrigine), HTN, diverticulosis, GERD, and pre-DM, presenting to the ED due to intermittent midsternal & left sided chest pain for the past 1 week, which has worsened today. Patient states she was driving today, when the pain increased, with associated SMITH and lightheadedness. Patient states the pain was an 8/10 in intensity at the time, with a sensation of pressure and pinching that did not radiate anywhere. Endsorses rubbing it improved the pain. She denies any shortness of breath, nausea, vomiting, fever, chills. Patient also reports back pain and bilateral leg pain, which has been chronic for 3-4 years and for which she takes Aleve at times, with some relief. Patient is on Effexor as well, which states helps with the back and leg pain. Patient is a nonsmoker. Her last visit to PCP was about 1 year ago. Patient states she takes her BP at home regularly, and it is usually around 120/80. She has sleep apnea, for which she uses a CPAP machine every night. ER course was notable for: (1) Ekg nsr, no St/T changes, negative trop (2) CTA inconclusive for pulmonary emboli but could not confirm peripheral emboli (3) b/l duplex negative for dvt, but Lt saphenous vein could not be visualized Recent Travel: denies PAST MEDICAL HISTORY: DVT x2 (last October 2016), right breast ca s/p lumpectomy 10 years ago, Bipolar disorder, DAVID PAST SURGICAL HISTORY: bilateral meniscal repair, right knee replacement 3 years ago, hernia repair 30 yrs ago, vein procedure (unknown) Social History: Smoking: denies Alcohol: denies Drugs: denies Allergies morphine Adverse Reaction (Verified 05/17/19 15:50) Vomiting HOME MEDICATIONS: Home Medications Medication Instructions Recorded Venlafaxine HCl [Effexor] 300 mg PO DAILY 12/13/12 Simvastatin [Zocor -] 10 mg PO HS 11/15/16 Aspirin [Aspirin EC] 81 mg PO DAILY 05/17/19 Lamotrigine 25 mg PO DAILY 05/17/19 REVIEW OF SYSTEMS Negative except above PHYSICAL EXAMINATION Vital Signs - 24 hr 05/17/19 05/17/19 05/18/19 15:46 17:25 00:30 Temperature 97.8 F 98.6 F Pulse Rate 83 Pulse Rate [ 78 80 Apical] Respiratory 19 16 Rate Blood Pressure 143/64 Blood Pressure 154/83 [Left Arm] Blood Pressure 122/64 [Right Arm] O2 Sat by Pulse 99 100 97 Oximetry (%) GENERAL: Awake, alert, and fully oriented, in no acute distress. HEAD: Normal with no signs of trauma. EYES: opthalmoscopic exam normal, no cotton woool exudates, or AV nicking present EARS, NOSE, THROAT: Ears normal, nares patent, oropharynx clear without exudates. Moist mucous membranes. NECK: Normal range of motion, JVD, or masses. LUNGS: Breath sounds equal, clear to auscultation bilaterally. No wheezes, and no crackles. No accessory muscle use. HEART: Regular rate and rhythm, normal S1 and S2 without murmur, rub or gallop. ABDOMEN: Soft, nontender, not distended, normoactive bowel sounds, no guarding, no rebound, no masses. MUSCULOSKELETAL: b/l LE ttp, no edema appreciated UPPER EXTREMITIES: 2+ pulses, warm, well-perfused. No peripheral edema. LOWER EXTREMITIES: 2+ pulses, warm, well-perfused. b/l calf tenderness minimally. No peripheral edema. NEUROLOGICAL: Cranial nerves II-XII intact. Normal speech. PSYCHIATRIC: Cooperative. Good eye contact. Appropriate mood and affect. SKIN: Warm, dry, normal turgor, no rashes or lesions noted, Laboratory Results - last 24 hr 05/17/19 05/17/19 05/17/19 16:10 16:10 20:25 WBC 7.7 RBC 4.91 Hgb 14.9 Hct 45.0 MCV 91.7 MCH 30.4 MCHC 33.2 RDW 13.8 Plt Count 284 MPV 8.9 Absolute Neuts (auto) 3.9 Neutrophils % 51.2 D Lymphocytes % 36.8 D Monocytes % 8.2 Eosinophils % 2.6 D Basophils % 1.2 Nucleated RBC % 0 PT with INR 11.60 INR 0.98 PTT (Actin FS) 35.4 Sodium 139 Potassium 4.4 Chloride 107 Carbon Dioxide 25 Anion Gap 6 L BUN 15.7 Creatinine 0.7 Est GFR (CKD-EPI)AfAm 107.62 Est GFR (CKD-EPI)NonAf 92.86 Random Glucose 95 Calcium 8.8 Magnesium 2.2 Total Bilirubin 0.2 AST 16 ALT 24 Alkaline Phosphatase 112 Creatine Kinase 122 Troponin I < 0.02 Total Protein 7.2 Albumin 3.8 05/17/19 23:30 WBC RBC Hgb Hct MCV MCH MCHC RDW Plt Count MPV Absolute Neuts (auto) Neutrophils % Lymphocytes % Monocytes % Eosinophils % Basophils % Nucleated RBC % PT with INR INR PTT (Actin FS) Sodium Potassium Chloride Carbon Dioxide Anion Gap BUN Creatinine Est GFR (CKD-EPI)AfAm Est GFR (CKD-EPI)NonAf Random Glucose Calcium Magnesium Total Bilirubin AST ALT Alkaline Phosphatase Creatine Kinase Troponin I < 0.02 Total Protein Albumin ASSESSMENT/PLAN: 63 year old female with PMHx of 2 prior DVTs s/p thrombectomy (last DVT October 2016 ), R. breast cancer s/p lumpectomy 10 years ago, PTSD, Bipolar disorder (on Lamotrigine), HTN, diverticulosis, GERD, and pre-DM, presenting to the ED due to intermittent midsternal & left sided chest pain for the past 1 week, which has worsened today. #Unstable Angina/MSK - r/o ACS - Ekg nsr, no ST changes, trop negative, will rpt cardiac profile in AM. - reproducable ttp on exam - improves with effexor and pt has >6 tender points on exam giving potential dx of Fibromyalgia and tenderness improves with effexor - will continue effexor as well - possible costochondritis of which NSAIDS should help - echo in AM to assess for any wma's - cxr-no acute pathology order d dimer for cta inconclusivity - cardio consult - tsh #Bipolar disorder - not in acute oscar at this time - will continue lamotrigine #DAVID - CPAP continued at night FENGI - oral fluids is okay - monitor lytes - regular diet - no GI PPX, DVT ppx- Lovenox 40 daily ATTENDING PHYSICIAN STATEMENT I saw and evaluated the patient. I reviewed the resident's note and discussed the case with the resident. I agree with the resident's findings and plan as documented. SUBJECTIVE: OBJECTIVE: ASSESSMENT AND PLAN:
[2019-05-18 05:53] VITALS: BMI 54.4
[2019-05-18 08:24] LABS: HEMOGLOBIN 14.3 GM/dL (10.7-15.3); MCH 30.9 pg (25.7-33.7); MEAN CELL VOLUME 90.9 fl (80-96); MEAN PLT VOLUME 8.9 fl (7.5-11.1); PLATELET COUNT 287 K/MM3 (134-434); RBC 4.62 M/mm3 (3.60-5.2); RDW 13.9 % (11.6-15.6); WHITE BLOOD COUNT 6.1 K/mm3 (4.0-10.0)
[2019-05-18] MEDS ORDERED: FLU VACCINE QUAD 60 MCG/0.5 ML (MDV 19-20) IM ONE (09:00)
[2019-05-18 09:06] LABS: ALBUMIN 3.5 g/dl (3.4-5.0); BILIRUBIN,TOTAL 0.4 mg/dL (0.2-1); BLOOD UREA NITROGEN 14.5 mg/dL (7-18); CALCIUM 8.9 mg/dL (8.5-10.1); CREATININE 0.7 mg/dL (0.55-1.3); MAGNESIUM 2.4 mg/dL (1.8-2.4); PHOSPHOROUS 4.4 mg/dL (2.5-4.9); POTASSIUM 4.3 mmol/L (3.5-5.1); TOT PROT 6.8 g/dl (6.4-8.2)
--- NOTE | 2019-05-18 09:13 | PN ---
Teaching Attending Note Name of Resident: García Manriquez ATTENDING PHYSICIAN STATEMENT I saw and evaluated the patient. I reviewed the resident's note and discussed the case with the resident. I agree with the resident's findings and plan as documented. SUBJECTIVE: Patient is a 63yo female with PMHx of 2 prior DVTs s/p thrombectomy (last DVT October 2016), right breast cancer s/p lumpectomy 10 years ago, PTSD, Bipolar disorder (on Lamotrigine), sleep apnea on cpap machine at nights, HTN, diverticulosis, GERD, and pre-DM, presents to the ED due to having intermittent midsternal & left sided chest pain for the past 1 week with worsening pain. OBJECTIVE: Vital Signs Temperature 97.7 F 05/18/19 06:45 Pulse Rate 77 05/18/19 06:45 Respiratory Rate 20 05/18/19 06:45 Blood Pressure 116/72 05/18/19 06:45 O2 Sat by Pulse Oximetry (%) 96 05/18/19 02:02 GENERAL: The patient is awake, alert, and fully oriented, in no acute distress. HEAD: Normal with no signs of trauma. EYES: PERRL, extraocular movements intact, sclera anicteric, conjunctiva clear. No ptosis. ENT: Ears normal, nares patent, oropharynx clear without exudates, moist mucous membranes. NECK: Trachea midline, full range of motion, supple. LUNGS: Breath sounds equal, clear to auscultation bilaterally, no wheezes, no crackles, no accessory muscle use. HEART: Regular rate and rhythm, S1, S2 positive, without murmur, rub or gallop. ABDOMEN: Soft, nontender, nondistended, normoactive bowel sounds, no guarding, no rebound, no hepatosplenomegaly, no masses. EXTREMITIES: 2+ pulses, warm, well-perfused, no edema. NEUROLOGICAL: Cranial nerves II through XII grossly intact. Normal speech, gait not observed. PSYCH: Normal mood, normal affect. SKIN: Warm, dry, normal turgor, no rashes or lesions noted CBCD WBC 6.1 K/mm3 (4.0-10.0) 05/18/19 08:05 RBC 4.62 M/mm3 (3.60-5.2) 05/18/19 08:05 Hgb 14.3 GM/dL (10.7-15.3) 05/18/19 08:05 Hct 42.0 % (32.4-45.2) 05/18/19 08:05 MCV 90.9 fl (80-96) 05/18/19 08:05 MCHC 34.0 g/dl (32.0-36.0) 05/18/19 08:05 RDW 13.9 % (11.6-15.6) 05/18/19 08:05 Plt Count 287 K/MM3 (134-434) 05/18/19 08:05 MPV 8.9 fl (7.5-11.1) 05/18/19 08:05 CMP Sodium 142 mmol/L (136-145) 05/18/19 08:05 Potassium 4.3 mmol/L (3.5-5.1) 05/18/19 08:05 Chloride 108 mmol/L (98-107) H 05/18/19 08:05 Carbon Dioxide 29 mmol/L (21-32) 05/18/19 08:05 Anion Gap 6 MMOL/L (8-16) L 05/18/19 08:05 BUN 14.5 mg/dL (7-18) 05/18/19 08:05 Creatinine 0.7 mg/dL (0.55-1.3) 05/18/19 08:05 Random Glucose 113 mg/dL (74-106) H 05/18/19 08:05 Calcium 8.9 mg/dL (8.5-10.1) 05/18/19 08:05 Total Bilirubin 0.4 mg/dL (0.2-1) 05/18/19 08:05 AST 14 U/L (15-37) L 05/18/19 08:05 ALT 25 U/L (13-61) 05/18/19 08:05 Alkaline Phosphatase 94 U/L (45-117) 05/18/19 08:05 Total Protein 6.8 g/dl (6.4-8.2) 05/18/19 08:05 Albumin 3.5 g/dl (3.4-5.0) 05/18/19 08:05 CARDIAC ENZYMES Creatine Kinase 90 U/L (26-192) 05/18/19 08:05 Troponin I < 0.02 ng/ml (0.00-0.05) 05/18/19 08:05 Current Medications Generic Name Dose Route Start Last Admin Trade Name Gigi PRN Reason Stop Dose Admin Aspirin 81 mg 05/18/19 10:00 Ecotrin - PO DAILY MARY Atorvastatin Calcium 10 mg 05/18/19 22:00 Lipitor - PO HS MAYR Enoxaparin Sodium 40 mg 05/18/19 10:00 Lovenox - SQ DAILY MARY Lamotrigine 25 mg 05/18/19 10:00 Lamictal - PO DAILY MARY Venlafaxine HCl 300 mg 05/18/19 10:00 Effexor Xr - PO DAILY [facility] Home Medications Medication Instructions Recorded Venlafaxine HCl [Effexor] 300 mg PO DAILY 12/13/12 Simvastatin [Zocor -] 10 mg PO HS 11/15/16 Aspirin [Aspirin EC] 81 mg PO DAILY 05/17/19 Lamotrigine 25 mg PO DAILY 05/17/19 Laboratory Tests 05/17/19 05/17/19 05/18/19 16:10 23:30 08:05 Random Glucose 95 113 H Troponin I < 0.02 < 0.02 TSH 2.79 05/18/19 08:05 Random Glucose Troponin I < 0.02 TSH ASSESSMENT AND PLAN: Patient is a 63yo female with PMHx of 2 prior DVTs s/p thrombectomy (last DVT October 2016), right breast cancer s/p lumpectomy 10 years ago, PTSD, Bipolar disorder (on Lamotrigine), sleep apnea on cpap machine at nights, HTN, diverticulosis, GERD, and pre-DM, presents to the ED due to having intermittent midsternal & left sided chest pain for the past 1 week with worsening pain. # Acute Cp r/o ACS, CTA no central pulmonary embolus noted. doppler: No DVT . EKG is NSR with no significant ST-T wave changes, troponin is negative so far. echo is pending, cardio consult appreciated. # Hx of DVts, s/p thrombectomy in 2016 # Hx of Breast Ca s/p lumpectomy # PTSD on Effexor continue # Hx of sleep apnea on cpap # Morbid obesity with BMI of 54. # hx of Hypertension : Noprmotensive now #HLD continue with lipitor DVT prophylaxis - Lovenox 40 mg stress test in am , npo after midnight
[2019-05-18] MEDS ORDERED: VENLAFAXINE HCL 100 MG TABLET PO SCH (10:00)
[2019-05-18] MEDS ORDERED: VENLAFAXINE HCL 75 MG E.R. CAPSULES (FP) PO SCH ×2 (10:00→11:30)
[2019-05-18] MEDS ORDERED: PT OWN MED DRAWER 7, Y5N ONE ×2 (11:16→16:23)
[2019-05-18] MEDS: ENOXAPARIN NA (PORCINE) 40 MG/0.4 ML DISP.SYRIN SQ SCH (11:20)
[2019-05-18] MEDS: ASPIRIN COATED 81 MG TABLET.EC PO SCH (11:21)
[2019-05-18] MEDS ORDERED: VENLAFAXINE HCL 150 MG E.R. CAPSULE PO SCH (11:26)
--- NOTE | 2019-05-18 12:37 | EKG ---
Test Reason : Blood Pressure : / mmHG Vent. Rate : 079 BPM Atrial Rate : 079 BPM P-R Int : 164 ms QRS Dur : 102 ms QT Int : 414 ms P-R-T Axes : 028 020 077 degrees QTc Int : 474 ms NORMAL SINUS RHYTHM NONSPECIFIC T WAVE ABNORMALITY ABNORMAL ECG WHEN COMPARED WITH ECG OF 24-JAN-2017 10:43, NO SIGNIFICANT CHANGE WAS FOUND Confirmed by KRYSTYNA DUTTA MD ([id number]) on 05/18/2019 12:37:31 PM Referred By: Confirmed By:KRYSTYNA DUTTA MD
--- NOTE | 2019-05-18 12:39 | EKG ---
Test Reason : Blood Pressure : / mmHG Vent. Rate : 078 BPM Atrial Rate : 078 BPM P-R Int : 170 ms QRS Dur : 100 ms QT Int : 428 ms P-R-T Axes : 041 029 076 degrees QTc Int : 487 ms NORMAL SINUS RHYTHM NONSPECIFIC T WAVE ABNORMALITY ABNORMAL ECG WHEN COMPARED WITH ECG OF 17-MAY-2019 23:24, NO SIGNIFICANT CHANGE WAS FOUND Confirmed by KRYSTYNA DUTTA MD ([id number]) on 05/18/2019 12:38:37 PM Referred By: [facility] [place] Confirmed By:KRYSTYNA DUTTA MD
--- NOTE | 2019-05-18 15:21 | PN ---
Physical Exam: SUBJECTIVE: Patient seen and examined 63 y/o F, PMHx of 2 prior DVTs s/p thrombectomy (last DVT October 2016), R. breast cancer s/p lumpectomy 10 years ago, PTSD, Bipolar disorder (on Lamotrigine), HTN , diverticulosis, GERD, and pre-DM, presented for, a self resolved, left sided, non-radiating, dull, intermittent chest pain rated at 8/10 of 1 hour duration admitted for unstable angina and acs r/o. Currently, pt is asymptomatic and afebrile with no more c/o or symptoms. Pt says she has not experienced the pain again. No overnight events. Denies f/c/n/v/d/sob. OBJECTIVE: Vital Signs Period Temp Pulse Resp BP Sys/[place] Pulse Ox Last 24 Hr 97.7 F-98.6 F 73-83 16-20 116-154/63-83 96-100 GENERAL: The patient is awake, alert, and fully oriented, in no acute distress. EYES: PERRL, extraocular movements intact, conjunctiva clear. No ptosis. ENT: oropharynx clear without exudates, moist mucous membranes. NECK: full range of motion, supple. LUNGS: Breath sounds equal, clear to auscultation bilaterally, no wheezes, no crackles HEART: ttp+ left parasternally, Regular rate and rhythm, S1, S2 without murmur, rub or gallop. ABDOMEN: Soft, nontender, nondistended, normoactive bowel sounds, no guarding, EXTREMITIES: 2+ pulses, warm, well-perfused, no edema. PSYCH: Normal mood, normal affect. SKIN: Warm, dry, normal turgor, Laboratory Results - last 24 hr CBC,CMP WBC 6.1 K/mm3 (4.0-10.0) 05/18/19 08:05 RBC 4.62 M/mm3 (3.60-5.2) 05/18/19 08:05 Hgb 14.3 GM/dL (10.7-15.3) 05/18/19 08:05 Hct 42.0 % (32.4-45.2) 05/18/19 08:05 MCV 90.9 fl (80-96) 05/18/19 08:05 MCH 30.9 pg (25.7-33.7) 05/18/19 08:05 MCHC 34.0 g/dl (32.0-36.0) 05/18/19 08:05 RDW 13.9 % (11.6-15.6) 05/18/19 08:05 Plt Count 287 K/MM3 (134-434) 05/18/19 08:05 MPV 8.9 fl (7.5-11.1) 05/18/19 08:05 Absolute Neuts (auto) 3.9 K/mm3 (1.5-8.0) 05/17/19 16:10 Neutrophils % 51.2 % (42.8-82.8) D 05/17/19 16:10 Lymphocytes % 36.8 % (8-40) D 05/17/19 16:10 Monocytes % 8.2 % (3.8-10.2) 05/17/19 16:10 Eosinophils % 2.6 % (0-4.5) D 05/17/19 16:10 Basophils % 1.2 % (0-2.0) 05/17/19 16:10 Nucleated RBC % 0 % (0-0) 05/17/19 16:10 Sodium 142 mmol/L (136-145) 05/18/19 08:05 Potassium 4.3 mmol/L (3.5-5.1) 05/18/19 08:05 Chloride 108 mmol/L (98-107) H 05/18/19 08:05 Carbon Dioxide 29 mmol/L (21-32) 05/18/19 08:05 Anion Gap 6 MMOL/L (8-16) L 05/18/19 08:05 BUN 14.5 mg/dL (7-18) 05/18/19 08:05 Creatinine 0.7 mg/dL (0.55-1.3) 05/18/19 08:05 Est GFR (CKD-EPI)AfAm 107.62 05/18/19 08:05 Est GFR (CKD-EPI)NonAf 92.86 05/18/19 08:05 Random Glucose 113 mg/dL (74-106) H 05/18/19 08:05 Calcium 8.9 mg/dL (8.5-10.1) 05/18/19 08:05 Phosphorus 4.4 mg/dL (2.5-4.9) 05/18/19 08:05 Magnesium 2.4 mg/dL (1.8-2.4) 05/18/19 08:05 Total Bilirubin 0.4 mg/dL (0.2-1) 05/18/19 08:05 AST 14 U/L (15-37) L 05/18/19 08:05 ALT 25 U/L (13-61) 05/18/19 08:05 Alkaline Phosphatase 94 U/L (45-117) 05/18/19 08:05 Creatine Kinase 90 U/L (26-192) 05/18/19 08:05 Troponin I < 0.02 ng/ml (0.00-0.05) 05/18/19 08:05 Total Protein 6.8 g/dl (6.4-8.2) 05/18/19 08:05 Albumin 3.5 g/dl (3.4-5.0) 05/18/19 08:05 TSH 2.79 uIU/ml (0.358-3.74) 05/18/19 08:05 Active Medications Current Medications Aspirin (Ecotrin -) 81 mg PO DAILY [facility], [facility] Last Admin: 05/18/19 11:21 Dose: 81 mg Atorvastatin Calcium (Lipitor -) 10 mg PO HS [facility], [facility]1983 Enoxaparin Sodium (Lovenox -) 40 mg SQ DAILY [facility], [facility] Last Admin: 05/18/19 11:20 Dose: 40 mg Lamotrigine (Lamictal -) 25 mg PO DAILY [facility] Venlafaxine HCl (Effexor Xr -) 300 mg PO DAILY [facility] Home Medications Medication Instructions Recorded Aspirin [Aspirin EC] 81 mg PO DAILY 05/17/19 Lamotrigine 25 mg PO DAILY 05/17/19 Rosuvastatin [Crestor -] 5 mg PO HS 05/18/19 Venlafaxine HCl ER [Effexor Xr -] 150 mg PO BIDAC 05/18/19 ASSESSMENT/PLAN: 63 y/o F, PMHx of 2 prior DVTs s/p thrombectomy (last DVT October 2016), R. breast cancer s/p lumpectomy 10 years ago, PTSD, Bipolar disorder (on Lamotrigine), HTN , diverticulosis, GERD, and pre-DM, presented for, a self resolved, left sided, non-radiating, dull, intermittent chest pain admitted for unstable angina and acs r/o #Chest pain 2/2 to Unstable Angina vs MSK pain vs fibromyalgia r/o ACS Ekg normal, trops neg x3, CTA chest negative- unable to r/o distal PE, but clinically unlikely CXR-no acute pathology pain reproducible on exam Pain improved on muscle relaxants, >6 tender points noted on exam Echo done-f/u Cardio consult- Stress test will be done today and tomorrow as per cardio- we will f/u #Bipolar disorder Stable continue lamotrigine #DAVID CPAP at night if needed #DVT ppx Lovenox 40 FEN NPO after Midnight for stress test in the am- sodium controlled diet till midnight monitor lytes Dispo: f/u w/ cardio in the am, f/u stress test in the am, NPO after midnight Visit type - Emergency Visit Emergency Visit: Yes ED Registration Date: 05/17/19 Care time: The patient presented to the Emergency Department on the above date and was hospitalized for further evaluation of their emergent condition. - New Patient This patient is new to me today: Yes Date on this admission: 05/18/19 - Critical Care Critical Care patient: No - Discharge Referral Referred to [facility] Med [facility] No ATTENDING PHYSICIAN STATEMENT I saw and evaluated the patient. I reviewed the resident's note and discussed the case with the resident. I agree with the resident's findings and plan as documented. SUBJECTIVE: OBJECTIVE: ASSESSMENT AND PLAN:
--- NOTE | 2019-05-18 15:51 | ECHO ---
Name: CLIFTON KRAMER Exam:Adult Echocardiogram Study Date: 05/18/2019 12:11 PM Age: 63 yrs Reason For Study: atypical chest pain Height: 62 in Weight: 292 lb BSA: 2.2 m2 MMode/2D Measurements & Calculations IVSd: 1.2 cm Ao root diam: 3.9 cm LVIDd: 5.8 cm LA dimension: 2.7 cm LVIDs: 4.1 cm ACS: 2.2 cm LVPWd: 1.1 cm IVSs: 1.4 cm LVPWs: 1.3 cm EDV(Teich): 167.7 ml ESV(Teich): 75.3 ml Doppler Measurements & Calculations MV E max carlo: 49.4 cm/sec Ao V2 max: 96.0 cm/sec MV A max carlo: 86.4 cm/sec Ao max P.7 mmHg MV E/A: 0.57 Ao V2 mean: 81.0 cm/sec Ao mean P.7 mmHg Ao V2 VTI: 21.1 cm Med Peak E' Carlo: 4.4 cm/sec Med E/e': 11.3 Lat Peak E' Carlo: 6.4 cm/sec Lat E/e': 7.7 Procedure A complete two-dimensional transthoracic echocardiogram was performed (2D, M-mode, Doppler and color flow Doppler). The study was technically difficult with many images being suboptimal in quality. Left Ventricle The left ventricular size, thickness and function are normal. The left ventricular ejection fraction is normal. Ejection Fraction = 60-65%. The left ventricular wall motion is normal. Right Ventricle The right ventricle is normal in size and function. Atria Normal left and right atrial size and function. Mitral Valve There is no mitral regurgitation noted. Tricuspid Valve There is trace tricuspid regurgitation. There was insufficient TR detected to calculate RV systolic p ressure. Aortic Valve No hemodynamically significant valvular aortic stenosis. No aortic regurgitation is present. Pulmonic Valve The pulmonic valve is not well visualized. Great Vessels The aortic root is normal size. Pericardium/Pleura There is no pericardial effusion. Interpretation Summary The study was technically difficult with many images being suboptimal in quality. The left ventricular size, thickness and function are normal The right ventricle is normal in size and function. There is trace tricuspid regurgitation. MD Lul Astudillo 05/18/2019 03:51 PM
--- NOTE | 2019-05-18 16:24 | CON.CARD ---
Consult Consult Specialty:: Cardiology Referred by:: Hospitalist Reason for Consultation:: chest pain - History of Present Illness Chief Complaint: chest pain History of Present Illness: 63 year old woman with a pmh HTN, pre DM, h/o DVTs s/p thrombectomy last DVT 2016, DAVID on CPAP, Breast Ca s/p lumpectomy, bipolar disorder admitted with intermittent chest pain for the past 1 week. she has not followed with her doctor or associate professor of history as outpatient. she was seen and examined today in [place] [facility]. denies any current symptoms. had echo and resting portion of NST today. - History Source History Provided By: Patient, Medical Record Limitations to Obtaining History: No Limitations - Past Medical History Cardio/Vascular: Yes: HTN, Hyperlipdemia Pulmonary: Yes: Asthma ...: No - Alcohol/Substance Use Hx Alcohol Use: No - Smoking History Smoking history: Never smoked Have you smoked in the past 12 months: No Aproximately how many cigarettes per day: 0 - Social History ADL: Independent History of Recent Travel: No Home Medications - Allergies Allergies/Adverse Reactions: Allergies Allergy/AdvReac Type Severity Reaction Status Date / Time morphine AdvReac Vomiting Verified 05/17/19 15:50 - Home Medications Home Medications: Ambulatory Orders Aspirin [Aspirin EC] 81 mg PO DAILY 05/17/19 Lamotrigine 25 mg PO DAILY 05/17/19 Rosuvastatin [Crestor -] 5 mg PO HS 05/18/19 Venlafaxine HCl ER [Effexor Xr -] 150 mg PO BIDAC 05/18/19 Review of Systems - Review of Systems Constitutional: denies: No Symptoms, Chills, Diaphoresis, Fever, Lethargy, Loss of Appetite, Malaise, Night Sweats, Unintentional Wgt. Loss, Weakness, Other Eyes: denies: No Symptoms, Blind Spots, Blurred Vision, Double Vision, Eye Pain , Floaters, Photophobia, Recent Change in Vision, Other HENT: denies: No Symptoms, Difficult Swallowing, Ear Discharge, Ear Pain, Epistaxis, Gingival Bleeding, Hearing Loss, Mouth Swelling, Nasal Congestion, Ocular Prosthesis, Throat Pain, Toothache, Ringing in Ears, Other Neck: denies: No Symptoms, Decreased ROM, Lumps, Pain on Movement, Stiffness, Swollen Glands, Tenderness, Other Cardiovascular: reports: Chest Pain. denies: No Symptoms, Edema, Palpitations, Shortness of Breath, Other Respiratory: denies: No Symptoms, Cough, Exercise Intolerance, Hemoptysis, Orthopnea, PND, Snoring, SOB, SOB on Exertion, Wheezing, Other Gastrointestinal: denies: No Symptoms, Abdominal Pain, Bloating, Constipation, Diarrhea, Dysphagia, Indigestion, Melena, Nausea, Rectal Bleeding, Vomiting, Vomiting Blood, Other Genitourinary: denies: No Symptoms, Burning, Discharge, Dysuria, Flank Pain, Frequency, Hematuria, Incontinence, Lesions, Menses, Pain, Testicular Mass, Testicular Pain, Testicular Swelling, Urgency, Vaginal Bleeding, Other Breasts: denies: No Symptoms Reported, See HPI, Breast Implants, Discharge from Nipple, Lumps, Pain, Skin Changes, Other Musculoskeletal: denies: No Symptoms, Back Pain, Crepitus, Decreased ROM, Extremity Pain, Joint Pain, Joint Swelling, Muscle Pain, Muscle Cramps, Muscle Weakness, Other Integumentary: denies: No Symptoms, Blister, Bruising, Change in Color, Eczema, Erythema, Incision, Lesions, Lump, Pallor, Pruritis, Rash, Wound, Other Neurological: denies: No Symptoms, Change in LOC, Change in Speech, Confusion, Dizziness, Headache, Incoordination, Numbness, Parasthesia, Pre-Existing Deficit , Seizure, Syncope, Tremors, Unsteady Gait, Weakness, Other Endocrine: denies: No Symptoms, Excessive Sweating, Flushing, Increased Hunger, Increased Thirst, Intolerance to Cold, Intolerance to Heat, Unexplained Weight Gain, Unexplained Weight Loss, Other Hematology/Lymphatic: denies: No Symptoms, Easily Bruised, Excessive Bleeding, Swollen Glands, Other Psychiatric: denies: No Symptoms, Altered Sleep Pattern, Anxiety, Depression, Hallucinations, Panic, Paranoia, Suicidal, Other - Risk Factors Known Risk Factors: Yes: Diabetes Mellitus, Hypercholesterolemia, Hypertension Vital Signs: Vital Signs Temperature 97.7 F 05/18/19 06:45 Pulse Rate 82 05/18/19 10:00 Respiratory Rate 18 05/18/19 10:00 Blood Pressure 116/63 05/18/19 10:00 O2 Sat by Pulse Oximetry (%) 96 05/18/19 02:02 Constitutional: Yes: No Distress, Calm Eyes: Yes: Conjunctiva Clear, EOM Intact, PERRL HENT: Yes: Atraumatic, Normocephalic Neck: Yes: Supple, Trachea Midline Respiratory: Yes: Regular, CTA Bilaterally. No: Rales, Rhonchi, Wheezes Gastrointestinal: Yes: Normal Bowel Sounds, Soft. No: Distention, Tenderness Cardiovascular: Yes: Regular Rate and Rhythm. No: Bradycardia, Tachycardia, Pulse Irregular, Gallop, Rub, Varicosities JVD: No Carotid Bruit: No PMI: Non-Displaced Heart Sounds: Yes: S1, S2. No: Split S2, S3, S4, Clicks, Gallop, Rub, Bruit Murmur: No: Systolic Murmur, Diastolic Murmur Musculoskeletal: Yes: WNL Extremities: Yes: WNL Edema: Yes Peripheral Pulses WNL: No Neurological: Yes: Alert, Oriented Psychiatric: Yes: Alert, Oriented - Other Data Labs, Other Data: CBC, BMP 05/18/19 08:05 05/18/19 08:05 INR, PTT INR 0.98 (0.83-1.09) 05/17/19 20:25 Troponin, BNP 05/17/19 05/17/19 05/18/19 16:10 23:30 08:05 Troponin I < 0.02 < 0.02 < 0.02 Troponin, BNP 05/17/19 05/17/19 05/18/19 16:10 23:30 08:05 Troponin I < 0.02 < 0.02 < 0.02 nsr nsst Echo: Report Reviewed Imaging - Results Chest X-ray: Report Reviewed, Image Reviewed EKG: Report Reviewed, Image Reviewed Other: Report Reviewed, Image Reviewed (tele-nsr no arrhythmias recorded) Assessment/Plan 63 year old woman with a pmh HTN, pre DM, h/o DVTs s/p thrombectomy last DVT 2016, DAVID on CPAP, Breast Ca s/p lumpectomy, bipolar disorder admitted with intermittent chest pain for the past 1 week. she has not followed with her doctor or associate professor of history as outpatient. she was seen and examined today in [place] [facility]. denies any current symptoms. had echo and resting portion of NST today. Chest pain-atypical -not c/w ACS -cardiac enzymes wnl -no ischemia on ekg -echo showed normal LV/RV size and function, no sig valvular abnl -planned to complete NST 2nd part tomorrow -fup stress test tomorrow if no sig ischemia then pt would be acceptable for discharge from a cardiac standpoint with close outpt fup.
[2019-05-18] MEDS: lamoTRIgine 25 MG TABLET PO SCH (16:27)
[2019-05-18] MEDS ORDERED: ATORVASTATIN CA 10 MG TABLET (FP) PO SCH (22:00)
[2019-05-18] MEDS ORDERED: PATIENT'S OWN MEDICATION (NON-FORMULARY) (Simvastatin 10 MG) PO SCH (22:00)
[2019-05-19 06:33] VITALS: TEMP 97.5
[2019-05-19 06:44] LABS: HEMATOCRIT 41.2 % (32.4-45.2); HEMOGLOBIN 13.8 GM/dL (10.7-15.3); MCH 30.8 pg (25.7-33.7); MCHC 33.6 g/dl (32.0-36.0); MEAN CELL VOLUME 91.7 fl (80-96); MEAN PLT VOLUME 8.8 fl (7.5-11.1); PLATELET COUNT 278 K/MM3 (134-434); RDW 13.9 % (11.6-15.6); WHITE BLOOD COUNT 6.2 K/mm3 (4.0-10.0)
[2019-05-19 07:22] LABS: BLOOD UREA NITROGEN 13.2 mg/dL (7-18); CALCIUM 8.8 mg/dL (8.5-10.1); CREATININE 0.7 mg/dL (0.55-1.3); POTASSIUM 4.5 mmol/L (3.5-5.1)
[2019-05-19] MEDS ORDERED: REGADENOSON 0.4 MG/5 ML PRE-FILLED SYRINGE IVPUSH ONE ×2 (10:15→10:18)
[2019-05-19] MEDS ORDERED: PT OWN MED DRAWER 7, Y5N ONE (12:08)
[2019-05-19] MEDS: lamoTRIgine 25 MG TABLET PO SCH (12:10)
[2019-05-19] MEDS: ENOXAPARIN NA (PORCINE) 40 MG/0.4 ML DISP.SYRIN SQ SCH (12:10)
[2019-05-19] MEDS: ASPIRIN COATED 81 MG TABLET.EC PO SCH (12:10)
[2019-05-19 14:15] VITALS: BP 113/77; PULSE 77
--- NOTE | 2019-05-19 14:33 | PN ---
Teaching Attending Note Name of Resident: García Manriquez ATTENDING PHYSICIAN STATEMENT I saw and evaluated the patient. I reviewed the resident's note and discussed the case with the resident. I agree with the resident's findings and plan as documented. SUBJECTIVE: Patient is comfortable with no acute distress, going for stress test OBJECTIVE: Vital Signs Temperature 97.5 F L 05/19/19 06:00 Pulse Rate 77 05/19/19 10:00 Respiratory Rate 20 05/19/19 10:00 Blood Pressure 113/77 05/19/19 10:00 O2 Sat by Pulse Oximetry (%) 95 05/19/19 08:20 GENERAL: The patient is awake, alert, and fully oriented, in no acute distress. HEAD: Normal with no signs of trauma. EYES: PERRL, extraocular movements intact, sclera anicteric, conjunctiva clear. ENT: Ears normal, oropharynx clear without exudates, moist mucous membranes. NECK: Trachea midline, full range of motion, supple. LUNGS: Breath sounds equal, clear to auscultation bilaterally, no wheezes, no crackles, no accessory muscle use. HEART: Regular rate and rhythm, S1, S2 positive, without murmur, rub or gallop. ABDOMEN: Soft, NT, ND, normoactive bowel sounds, no guarding, no rebound, no hepatosplenomegaly, no masses. EXTREMITIES: 2+ pulses, warm, well-perfused, no edema. NEUROLOGICAL: Cranial nerves II through XII grossly intact. Normal speech, gait not observed. PSYCH: Normal mood, normal affect. SKIN: Warm, dry, normal turgor, no rashes or lesions noted CBCD WBC 6.2 K/mm3 (4.0-10.0) 05/19/19 05:45 RBC 4.50 M/mm3 (3.60-5.2) 05/19/19 05:45 Hgb 13.8 GM/dL (10.7-15.3) 05/19/19 05:45 Hct 41.2 % (32.4-45.2) 05/19/19 05:45 MCV 91.7 fl (80-96) 05/19/19 05:45 MCHC 33.6 g/dl (32.0-36.0) 05/19/19 05:45 RDW 13.9 % (11.6-15.6) 05/19/19 05:45 Plt Count 278 K/MM3 (134-434) 05/19/19 05:45 MPV 8.8 fl (7.5-11.1) 05/19/19 05:45 CMP Sodium 140 mmol/L (136-145) 05/19/19 05:45 Potassium 4.5 mmol/L (3.5-5.1) 05/19/19 05:45 Chloride 105 mmol/L (98-107) 05/19/19 05:45 Carbon Dioxide 31 mmol/L (21-32) 05/19/19 05:45 Anion Gap 4 MMOL/L (8-16) L 05/19/19 05:45 BUN 13.2 mg/dL (7-18) 05/19/19 05:45 Creatinine 0.7 mg/dL (0.55-1.3) 05/19/19 05:45 Random Glucose 112 mg/dL (74-106) H 05/19/19 05:45 Calcium 8.8 mg/dL (8.5-10.1) 05/19/19 05:45 Total Bilirubin 0.4 mg/dL (0.2-1) 05/18/19 08:05 AST 14 U/L (15-37) L 05/18/19 08:05 ALT 25 U/L (13-61) 05/18/19 08:05 Alkaline Phosphatase 94 U/L (45-117) 05/18/19 08:05 Total Protein 6.8 g/dl (6.4-8.2) 05/18/19 08:05 Albumin 3.5 g/dl (3.4-5.0) 05/18/19 08:05 CARDIAC ENZYMES Creatine Kinase 90 U/L (26-192) 05/18/19 08:05 Troponin I < 0.02 ng/ml (0.00-0.05) 05/18/19 08:05 Current Medications Generic Name Dose Route Start Last Admin Trade Name Gigi PRN Reason Stop Dose Admin Aspirin 81 mg 05/18/19 10:00 05/19/19 12:10 Ecotrin - PO 81 mg DAILY MARY Administration Atorvastatin Calcium 10 mg 05/18/19 22:00 05/18/19 21:15 Lipitor - PO 10 mg HS MARY Administration Enoxaparin Sodium 40 mg 05/18/19 10:00 05/19/19 12:10 Lovenox - SQ 40 mg DAILY MARY Administration Lamotrigine 25 mg 05/18/19 10:00 05/19/19 12:10 Lamictal - PO 25 mg DAILY MARY Administration Venlafaxine HCl 300 mg 05/18/19 11:30 05/19/19 12:10 Effexor Xr - PO 300 mg DAILY MARY Administration Home Medications Medication Instructions Recorded Aspirin [Aspirin EC] 81 mg PO DAILY 05/17/19 Lamotrigine 25 mg PO DAILY 05/17/19 Rosuvastatin [Crestor -] 5 mg PO HS 05/18/19 Venlafaxine HCl ER [Effexor Xr -] 150 mg PO BIDAC 05/18/19 ASSESSMENT AND PLAN: Patient is a 63yo female with PMHx of 2 prior DVTs s/p thrombectomy (last DVT October 2016), right breast cancer s/p lumpectomy 10 years ago, PTSD, Bipolar disorder (on Lamotrigine), sleep apnea on cpap machine at nights, HTN, diverticulosis, GERD, and pre-DM, presents to the ED due to having intermittent midsternal & left sided chest pain for the past 1 week with worsening pain. # Acute Cp resolved, acs is ruled out by the stress test. CTA no central pulmonary embolus noted. doppler: No DVT . EKG is NSR with no significant ST-T wave changes, troponins are negative. stress test (Lexiscan); no diagnostic ischemic ST changes and no arrhythmias during lexiscan testing. echo is done ; positive for trace TR. follow up with cardio Dr. Edmond in a week period. # Hx of DVts, s/p thrombectomy in 2017 # Hx of Breast Ca s/p lumpectomy # PTSD on Effexor continue # Hx of sleep apnea on cpap # Morbid obesity with BMI of 54. # hx of Hypertension : Normotensive now #HLD continue with lipitor DVT prophylaxis - Lovenox 40 mg discharge patient home now. with follow up visit with data conversion operator
--- NOTE | 2019-05-19 15:01 | DS ---
Physical Exam: SUBJECTIVE: Patient seen and examined Currently, pt is asymptomatic and afebrile with no more c/o or symptoms. Pt says she has not experienced the pain again. No overnight events. Denies f/c/n/v /d/sob. OBJECTIVE: Vital Signs Period Temp Pulse Resp BP Sys/[place] Pulse Ox Last 24 Hr 97.1 F-97.8 F 75-79 18-20 112-134/64-84 95-96 PHYSICAL EXAM GENERAL: The patient is awake, alert, and fully oriented, in no acute distress. EYES: PERRL, extraocular movements intact, conjunctiva clear. No ptosis. ENT: oropharynx clear without exudates, moist mucous membranes. NECK: full range of motion, supple. LUNGS: Breath sounds equal, clear to auscultation bilaterally, no wheezes, no crackles HEART: ttp+ left parasternally, Regular rate and rhythm, S1, S2 without murmur, rub or gallop. ABDOMEN: Soft, nontender, nondistended, normoactive bowel sounds, no guarding, EXTREMITIES: 2+ pulses, warm, well-perfused, no edema. PSYCH: Normal mood, normal affect. SKIN: Warm, dry, normal turgor, LABS Laboratory Results - last 24 hr CBC,CMP WBC 6.2 K/mm3 (4.0-10.0) 05/19/19 05:45 RBC 4.50 M/mm3 (3.60-5.2) 05/19/19 05:45 Hgb 13.8 GM/dL (10.7-15.3) 05/19/19 05:45 Hct 41.2 % (32.4-45.2) 05/19/19 05:45 MCV 91.7 fl (80-96) 05/19/19 05:45 MCH 30.8 pg (25.7-33.7) 05/19/19 05:45 MCHC 33.6 g/dl (32.0-36.0) 05/19/19 05:45 RDW 13.9 % (11.6-15.6) 05/19/19 05:45 Plt Count 278 K/MM3 (134-434) 05/19/19 05:45 MPV 8.8 fl (7.5-11.1) 05/19/19 05:45 Absolute Neuts (auto) 3.9 K/mm3 (1.5-8.0) 05/17/19 16:10 Neutrophils % 51.2 % (42.8-82.8) D 05/17/19 16:10 Lymphocytes % 36.8 % (8-40) D 05/17/19 16:10 Monocytes % 8.2 % (3.8-10.2) 05/17/19 16:10 Eosinophils % 2.6 % (0-4.5) D 05/17/19 16:10 Basophils % 1.2 % (0-2.0) 05/17/19 16:10 Nucleated RBC % 0 % (0-0) 05/17/19 16:10 Sodium 140 mmol/L (136-145) 05/19/19 05:45 Potassium 4.5 mmol/L (3.5-5.1) 05/19/19 05:45 Chloride 105 mmol/L (98-107) 05/19/19 05:45 Carbon Dioxide 31 mmol/L (21-32) 05/19/19 05:45 Anion Gap 4 MMOL/L (8-16) L 05/19/19 05:45 BUN 13.2 mg/dL (7-18) 05/19/19 05:45 Creatinine 0.7 mg/dL (0.55-1.3) 05/19/19 05:45 Est GFR (CKD-EPI)AfAm 107.62 05/19/19 05:45 Est GFR (CKD-EPI)NonAf 92.86 05/19/19 05:45 Random Glucose 112 mg/dL (74-106) H 05/19/19 05:45 Calcium 8.8 mg/dL (8.5-10.1) 05/19/19 05:45 Phosphorus 4.4 mg/dL (2.5-4.9) 05/18/19 08:05 Magnesium 2.4 mg/dL (1.8-2.4) 05/18/19 08:05 Total Bilirubin 0.4 mg/dL (0.2-1) 05/18/19 08:05 AST 14 U/L (15-37) L 05/18/19 08:05 ALT 25 U/L (13-61) 05/18/19 08:05 Alkaline Phosphatase 94 U/L (45-117) 05/18/19 08:05 Creatine Kinase 90 U/L (26-192) 05/18/19 08:05 Troponin I < 0.02 ng/ml (0.00-0.05) 05/18/19 08:05 Total Protein 6.8 g/dl (6.4-8.2) 05/18/19 08:05 Albumin 3.5 g/dl (3.4-5.0) 05/18/19 08:05 TSH 2.79 uIU/ml (0.358-3.74) 05/18/19 08:05 Current Medications Aspirin (Ecotrin -) 81 mg PO DAILY [facility] Last Admin: 05/19/19 12:10 Dose: 81 mg Atorvastatin Calcium (Lipitor -) 10 mg PO HS [facility] Last Admin: 05/18/19 21:15 Dose: 10 mg Enoxaparin Sodium (Lovenox -) 40 mg SQ DAILY [facility] Last Admin: 05/19/19 12:10 Dose: 40 mg Lamotrigine (Lamictal -) 25 mg PO DAILY [facility] Last Admin: 05/19/19 12:10 Dose: 25 mg Venlafaxine HCl (Effexor Xr -) 300 mg PO DAILY [facility] Last Admin: 05/19/19 12:10 Dose: 300 mg Home Medications Medication Instructions Recorded Aspirin [Aspirin EC] 81 mg PO DAILY 05/17/19 Lamotrigine 25 mg PO DAILY 05/17/19 Rosuvastatin [Crestor -] 5 mg PO HS 05/18/19 Venlafaxine HCl ER [Effexor Xr -] 150 mg PO BIDAC 05/18/19 HOSPITAL COURSE: Date of Admission:05/17/19 63 y/o F, PMHx of 2 prior DVTs s/p thrombectomy (last DVT October 2016), R. breast cancer s/p lumpectomy 10 years ago, PTSD, Bipolar disorder (on Lamotrigine), HTN , diverticulosis, GERD, and pre-DM, presented for, a self resolved, left sided, non-radiating, dull, intermittent chest pain admitted for unstable angina and acs r/o. Pt reports multiple hx of similar chest pains which resolve on their own. Pt has had a work up for PE in the past which was negative. At this admission, Pt was worked up for ACS, w/ EKG normal, trops were negative 3 times , Echo normal and Nuclear stress test also found too be normal. Pt was given muscle relaxants and her symptoms resolved. Pt symptoms could likely be rheumatologic in nature and will need outpt work up. Pt was discharged home with VNS Ekg: nsr, no St/T changes trops neg x3 CTA chest negative- unable to r/o distal PE, but clinically unlikely CXR-no acute pathology Echo - normal findings, EF 67% Stress test- no myocardial perfusion defect Duplex US: no acute pathology #Chest pain 2/2 to Unstable Angina vs MSK pain vs fibromyalgia r/o ACS Date of Discharge: 05/19/19 Minutes to complete discharge: 35 Discharge Summary Problems reviewed: Yes Reason For Visit: CHEST PAIN Condition: Improved - Instructions Diet, Activity, Other Instructions: You were admitted to the hospital for chest pain While you were in the hospital, we were evaluated you with lab work, imaging including chest X rays and CAT scans of your chest. We also did an echocardiogram of your heart and you underwent a stress test, both of which were normal. Your symptoms improved and you were stable to be discharged home. You will need to follow up with your primary care physician within one week Please follow up with Dr. Edmond within one week Please take all your medications as prescribed Return to the emergency room, if you experience any worsening of symptoms, chest pain, shortness of breath, nausea, vomiting, and worsening pain. Referrals: Justin Edmond MD [Staff Physician] - 1 Week Lou Dawson MD [Primary Care Provider] - 1 Week Disposition: VNS/HOME HEALTH CARE - Home Medications Comprehensive Discharge Medication List: Ambulatory Orders Aspirin [Aspirin EC] 81 mg PO DAILY 05/17/19 Lamotrigine 25 mg PO DAILY 05/17/19 Rosuvastatin [Crestor -] 5 mg PO HS 05/18/19 Venlafaxine HCl ER [Effexor Xr -] 150 mg PO BIDAC 05/18/19 This patient is new to me today: Yes Date on this admission: 05/19/19 Emergency Visit: Yes ED Registration Date: 05/17/19 Care time: The patient presented to the Emergency Department on the above date and was hospitalized for further evaluation of their emergent condition. Critical Care patient: No - Discharge Referral Referred to [facility] Med P.C.: No ATTENDING PHYSICIAN STATEMENT I saw and evaluated the patient. I reviewed the resident's note and discussed the case with the resident. I agree with the resident's findings and plan as documented. SUBJECTIVE: OBJECTIVE: ASSESSMENT AND PLAN:
--- NOTE | 2019-05-19 15:24 | PN ---
Progress Note, Physician History of Present Illness: seen and examined today in [facility]. no overnight events. no new complaints. - Current Medication List Current Medications: Active Medications Aspirin (Ecotrin -) 81 mg PO DAILY [facility] Last Admin: 05/19/19 12:10 Dose: 81 mg Atorvastatin Calcium (Lipitor -) 10 mg PO HS [facility] Last Admin: 05/18/19 21:15 Dose: 10 mg Enoxaparin Sodium (Lovenox -) 40 mg SQ DAILY [facility] Last Admin: 05/19/19 12:10 Dose: 40 mg Lamotrigine (Lamictal -) 25 mg PO DAILY [facility] Last Admin: 05/19/19 12:10 Dose: 25 mg Venlafaxine HCl (Effexor Xr -) 300 mg PO DAILY [facility] Last Admin: 05/19/19 12:10 Dose: 300 mg - Objective Vital Signs: Vital Signs Temperature 97.5 F L 05/19/19 06:00 Pulse Rate 77 05/19/19 10:00 Respiratory Rate 20 05/19/19 10:00 Blood Pressure 113/77 05/19/19 10:00 O2 Sat by Pulse Oximetry (%) 95 05/19/19 08:20 Constitutional: Yes: No Distress, Calm Eyes: Yes: Conjunctiva Clear, EOM Intact HENT: Yes: Atraumatic, Normocephalic Neck: Yes: Supple, Trachea Midline Cardiovascular: Yes: Regular Rate and Rhythm, S1, S2. No: Bradycardia, Tachycardia, Pulse Irregular, Bruit, JVD, Gallop, Murmur, Rub, S3, S4, Varicosities Respiratory: Yes: Regular. No: Rales, Rhonchi, SOB, Wheezes Gastrointestinal: Yes: Normal Bowel Sounds, Soft. No: Distention, Tenderness Musculoskeletal: Yes: WNL Extremities: Yes: WNL Edema: No Peripheral Pulses WNL: Yes Neurological: Yes: Alert, Oriented Psychiatric: Yes: Alert, Oriented Labs: CBC, BMP 05/19/19 05:45 05/19/19 05:45 INR, PTT INR 0.98 (0.83-1.09) 05/17/19 20:25 - ....Imaging Chest X-ray: Report Reviewed, Image Reviewed EKG: Report Reviewed, Image Reviewed Other: Report Reviewed, Image Reviewed (tele-no sig events recorded) Assessment/Plan 63 year old woman with a pmh HTN, pre DM, h/o DVTs s/p thrombectomy last DVT 2016, DAVID on CPAP, Breast Ca s/p lumpectomy, bipolar disorder admitted with intermittent chest pain for the past 1 week. 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 she was seen and examined today in [facility]. denies any current symptoms. had echo and resting portion of NST today. Chest pain-atypical -not c/w ACS -cardiac enzymes wnl -no ischemia on ekg -echo showed normal LV/RV size and function, no sig valvular abnl -NST 05/19/19 showed no ischemia and normal LVEF -pt acceptable for discharge from a cardiac standpoint
== END 2019-05-19 18:45 | disposition home health service (06) ==
LOC: JER 15:39 → JERBED 20:14 → J4W 05-18 03:44
PROVIDERS: ADMIT Internal Medicine; ATTEND Internal Medicine
PROC: 3E033GC Introduction of Other Therapeutic Substance into Peripheral Vein, Percutaneous Approach (ICD-10-PCS; principal; 2019-05-17)
PROC: 3E02340 Introduction of Influenza Vaccine into Muscle, Percutaneous Approach (ICD-10-PCS; 2019-05-17)
DX: R07.89 Other chest pain (principal); I10 Essential (primary) hypertension; K21.9 Gastro-esophageal reflux disease without esophagitis; F43.10 Post-traumatic stress disorder, unspecified; F31.9 Bipolar disorder, unspecified; E78.5 Hyperlipidemia, unspecified; R73.03 Prediabetes; G47.30 Sleep apnea, unspecified; E66.01 Morbid (severe) obesity due to excess calories; Z68.43 Body mass index [BMI] 50.0-59.9, adult; Z99.89 Dependence on other enabling machines and devices; Z79.82 Long term (current) use of aspirin; Z88.6 Allergy status to analgesic agent; Z86.718 Personal history of other venous thrombosis and embolism; Z85.3 Personal history of malignant neoplasm of breast; Z91.14 Patient's other noncompliance with medication regimen; Z92.21 Personal history of antineoplastic chemotherapy; Z92.3 Personal history of irradiation; Z23 Encounter for immunization
CPT/HCPCS: 36415; 71046-TC-FY; 71275-TC; 78452-TC; 80048; 80053; 82550; 83735; 84100; 84443; 84484; 85025; 85027; 85379; 85610; 85730; 90471; 93005; 93010; 93017; 93306-TC; 93970-TC; 94660; 96374; 97116-GP; 97161-GP; 99285-25; A9502; G0378; J2785; Q2036

== ENCOUNTER 2020-09-13 08:18 | Inpatient (IN) | payer OTHER ==
[2020-09-13] MEDS ORDERED: LACTATED RINGERS SOLUTION 1000 ML INFUS.BAG IV ONE (09:00)
[2020-09-13] MEDS ORDERED: ACETAMINOPHEN 1000 MG/100 ML VIAL (NON FORMULARY) IVPB ONE (09:01)
[2020-09-13] MEDS ORDERED: ACETAMINOPHEN INJECTION 100 ML IVPB ONE (09:12)
[2020-09-13 09:46] LABS: BASO % 0.4 % (0-2.0); EOS % 0.1 % (0-4.5); HEMATOCRIT 44.7 % (32.4-45.2); HEMOGLOBIN 15.1 GM/dL (10.7-15.3); LYMPH % 8.5 % (8-40); MCH 31.5 pg (25.7-33.7); MCHC 33.9 g/dl (32.0-36.0); MEAN CELL VOLUME 92.9 fl (80-96); MEAN PLT VOLUME 9.1 fl (7.5-11.1); MONO % 8.2 % (3.8-10.2); NEUT % 82.8 % (42.8-82.8); PLATELET COUNT 333 K/MM3 (134-434); RBC 4.81 M/mm3 (3.60-5.2); RDW 14.6 % (11.6-15.6); WHITE BLOOD COUNT 14.7 K/mm3 (4.0-10.0)
[2020-09-13 09:56] LABS: PROTHROMBIN TIME (PATIENT) 12.3 SEC (9.7-13.0)
[2020-09-13 09:59] LABS: ACTIVATED PTT 37.9 SECONDS (25.2-36.5)
[2020-09-13 10:02] LABS: CHLORIDE 106 mmol/L (98-107); SODIUM 138 mmol/L (136-145)
[2020-09-13 10:04] LABS: ALBUMIN 3.6 g/dl (3.4-5.0); ANION GAP 6 MMOL/L (8-16); BLOOD UREA NITROGEN 15.2 mg/dL (7-18); CO2 26 mmol/L (21-32); GLUCOSE,RANDOM 154 mg/dL (74-106); LIPASE 38 U/L (73-393)
[2020-09-13 10:08] LABS: CREATININE 0.9 mg/dL (0.55-1.3); SGOT/AST 15 U/L (15-37); SGPT/ALT 29 U/L (13-61)
[2020-09-13 10:09] LABS: BILIRUBIN,TOTAL 0.5 mg/dL (0.2-1); TOT PROT 7.4 g/dl (6.4-8.2)
[2020-09-13 10:10] LABS: ALK PHOS 107 U/L (45-117)
[2020-09-13 10:16] LABS: EPI CELLS >36 /uL (0-25.1); HYALINE CASTS 3 /uL (0-3.1); PH,URINE 5.5 (5.0-8.0); URINE APPEARANCE CLOUDY; URINE BACTERIA 1700 /uL (0-1359); URINE BILIRUBIN NEGATIVE (NEGATIVE); URINE COLOR DK YELLOW; URINE GLUCOSE (UA) NEGATIVE (NEGATIVE); URINE KETONE TRACE (NEGATIVE); URINE LEUK ESTERASE NEGATIVE (NEGATIVE); URINE NITRITE NEGATIVE (NEGATIVE); URINE PROTEIN 1+ (NEGATIVE); URINE RBC 43 /uL (0-23.9); URINE WBC 12 /uL (0-25.8)
[2020-09-13] MEDS ORDERED: MORPHINE SULFATE 2 MG/ML VIAL ONE (12:47)
[2020-09-13] MEDS ORDERED: morphine CARPU-JECT 2 MG/1 ML DISP.SYRIN IVPUSH ONE (12:48)
[2020-09-13] MEDS ORDERED: ONDANSETRON 4 MG/2 ML VIAL IVPUSH ONE (12:48)
[2020-09-13] MEDS ORDERED: ONDANSETRON 4 MG/2 ML VIAL ONE (12:49)
[2020-09-13] MEDS ORDERED: CIPROFLOXACIN 400 MG/D5W 400 MG/200 ML IVPB IVPB ONE (14:26)
[2020-09-13] MEDS ORDERED: ACETAMINOPHEN 325 MG TABLET (FP) PO PRN (16:28)
[2020-09-13] MEDS ORDERED: ONDANSETRON 4 MG/2 ML VIAL IVPB PRN (16:28)
[2020-09-13] MEDS: SODIUM CHLORIDE 1,000 ML IV SCH (22:07)
[2020-09-13] MEDS: MORPHINE SULFATE 2 MG/ML VIAL IVPUSH PRN (22:09)
[2020-09-13] MEDS: ROSUVASTATIN CA 5 MG TABLET (FP) PO SCH (22:09)
[2020-09-14 03:58] VITALS: BMI 54.0
[2020-09-14] MEDS: MORPHINE SULFATE 2 MG/ML VIAL IVPUSH PRN (06:19)
[2020-09-14] MEDS: INSULIN SLIDING SCALE (NOVOLOG) 1 VIAL SQ SCH ×4 (06:20→21:44)
[2020-09-14 07:54] LABS: BASO % 0.4 % (0-2.0); EOS % 1.1 % (0-4.5); HEMATOCRIT 43.6 % (32.4-45.2); HEMOGLOBIN 14.4 GM/dL (10.7-15.3); LYMPH % 18.3 % (8-40); MCH 31.1 pg (25.7-33.7); MCHC 33.2 g/dl (32.0-36.0); MEAN CELL VOLUME 93.8 fl (80-96); MONO % 10.2 % (3.8-10.2); PLATELET COUNT 314 K/MM3 (134-434); RBC 4.65 M/mm3 (3.60-5.2); RDW 14.4 % (11.6-15.6); WHITE BLOOD COUNT 12.5 K/mm3 (4.0-10.0)
[2020-09-14 08:57] LABS: ALBUMIN 3.4 g/dl (3.4-5.0); BLOOD UREA NITROGEN 9.2 mg/dL (7-18); CALCIUM 9.2 mg/dL (8.5-10.1)
[2020-09-14 09:00] LABS: CREATININE 0.7 mg/dL (0.55-1.3); TOT PROT 6.7 g/dl (6.4-8.2)
[2020-09-14 09:06] LABS: BILIRUBIN,TOTAL 0.6 mg/dL (0.2-1)
[2020-09-14] MEDS: ASPIRIN COATED 81 MG TABLET.EC PO SCH (09:34)
[2020-09-14] MEDS: lamoTRIgine 100 MG TABLET PO SCH (09:34)
[2020-09-14] MEDS ORDERED: FLU VACCINE (FLULAVAL) PF 60 MCG/0.5 ML SYRINGE 2020-2021 IM ONE (10:00)
[2020-09-14] MEDS ORDERED: VENLAFAXINE HCL 75 MG E.R. CAPSULES PO SCH ×2 (12:00)
[2020-09-14] MEDS ORDERED: traMADol HCL 50 MG TABLET PO PRN (12:15)
[2020-09-14] MEDS: VENLAFAXINE HCL 75 MG E.R. CAPSULES PO SCH (12:52)
[2020-09-14] MEDS: SODIUM CHLORIDE 1,000 ML IV SCH ×2 (20:06→21:44)
[2020-09-14] MEDS: ROSUVASTATIN CA 5 MG TABLET (FP) PO SCH (21:44)
[2020-09-15] MEDS: INSULIN SLIDING SCALE (NOVOLOG) 1 VIAL SQ SCH ×4 (06:05→21:12)
[2020-09-15] MEDS ORDERED: INSULIN (NOVOLOG) ASPART 100 UNITS/ML 10ML VIAL ONE (06:47)
[2020-09-15] MEDS ORDERED: INSULIN (LEVEMIR) 100 UNITS/ML UNITS SQ ONE (06:47)
[2020-09-15 08:06] LABS: CALCIUM 8.2 mg/dL (8.5-10.1)
[2020-09-15 08:08] LABS: BASO % 0.7 % (0-2.0); EOS % 1.9 % (0-4.5); HEMOGLOBIN 13.4 GM/dL (10.7-15.3); LYMPH % 17.7 % (8-40); MCH 31.3 pg (25.7-33.7); MCHC 33.5 g/dl (32.0-36.0); MEAN CELL VOLUME 93.4 fl (80-96); MEAN PLT VOLUME 9.2 fl (7.5-11.1); MONO % 10.3 % (3.8-10.2); NEUT % 69.4 % (42.8-82.8); PLATELET COUNT 292 K/MM3 (134-434); RBC 4.29 M/mm3 (3.60-5.2); RDW 14.5 % (11.6-15.6); WHITE BLOOD COUNT 13.1 K/mm3 (4.0-10.0)
[2020-09-15 08:10] LABS: CREATININE 0.6 mg/dL (0.55-1.3)
[2020-09-15 08:11] LABS: BILIRUBIN,TOTAL 0.4 mg/dL (0.2-1); TOT PROT 6.2 g/dl (6.4-8.2)
[2020-09-15] MEDS: lamoTRIgine 100 MG TABLET PO SCH (09:53)
[2020-09-15] MEDS: VENLAFAXINE HCL 75 MG E.R. CAPSULES PO SCH (09:53)
[2020-09-15] MEDS: ASPIRIN COATED 81 MG TABLET.EC PO SCH (09:54)
[2020-09-15] MEDS: ROSUVASTATIN CA 5 MG TABLET (FP) PO SCH (21:11)
[2020-09-15] MEDS: SODIUM CHLORIDE 1,000 ML IV SCH ×2 (21:12→23:06)
[2020-09-16] MEDS ORDERED: SODIUM PHOSPHATE/NA BIPHOS 133 ML ENEMA PR ONE (04:00)
[2020-09-16] MEDS: INSULIN SLIDING SCALE (NOVOLOG) 1 VIAL SQ SCH ×4 (06:02→20:59)
[2020-09-16 07:33] LABS: BASO % 0.6 % (0-2.0); EOS % 2.2 % (0-4.5); HEMOGLOBIN 14.1 GM/dL (10.7-15.3); LYMPH % 25.2 % (8-40); MCH 32.1 pg (25.7-33.7); MCHC 34.3 g/dl (32.0-36.0); MEAN CELL VOLUME 93.5 fl (80-96); MEAN PLT VOLUME 9.1 fl (7.5-11.1); MONO % 9.5 % (3.8-10.2); NEUT % 62.5 % (42.8-82.8); PLATELET COUNT 332 K/MM3 (134-434); RBC 4.38 M/mm3 (3.60-5.2); RDW 14.2 % (11.6-15.6); WHITE BLOOD COUNT 10.3 K/mm3 (4.0-10.0)
[2020-09-16 08:14] LABS: CALCIUM 8.7 mg/dL (8.5-10.1)
[2020-09-16 08:15] LABS: ALBUMIN 3.4 g/dl (3.4-5.0); BLOOD UREA NITROGEN 7.2 mg/dL (7-18)
[2020-09-16 08:18] LABS: CREATININE 0.8 mg/dL (0.55-1.3)
[2020-09-16 08:19] LABS: BILIRUBIN,TOTAL 0.5 mg/dL (0.2-1); TOT PROT 6.9 g/dl (6.4-8.2)
[2020-09-16] MEDS: ASPIRIN COATED 81 MG TABLET.EC PO SCH (10:08)
[2020-09-16] MEDS: POTASSIUM CHLORIDE TABS 10 MEQ TABLET.ER (FP) PO SCH (10:16)
[2020-09-16] MEDS: lamoTRIgine 100 MG TABLET PO SCH (10:16)
[2020-09-16] MEDS: VENLAFAXINE HCL 75 MG E.R. CAPSULES PO SCH (11:19)
[2020-09-16] MEDS: ROSUVASTATIN CA 5 MG TABLET (FP) PO SCH (20:59)
[2020-09-17] MEDS: SODIUM CHLORIDE 1,000 ML IV SCH (01:00)
[2020-09-17] MEDS: INSULIN SLIDING SCALE (NOVOLOG) 1 VIAL SQ SCH ×2 (06:24→12:01)
[2020-09-17] MEDS: POTASSIUM CHLORIDE TABS 10 MEQ TABLET.ER (FP) PO SCH (10:04)
[2020-09-17] MEDS: lamoTRIgine 100 MG TABLET PO SCH (10:04)
[2020-09-17] MEDS: ASPIRIN COATED 81 MG TABLET.EC PO SCH (10:04)
[2020-09-17] MEDS: VENLAFAXINE HCL 75 MG E.R. CAPSULES PO SCH (12:17)
[2020-09-17 13:17] VITALS: BP 147/78; PULSE 80; TEMP 98.2
== END 2020-09-17 15:06 | disposition home or self-care (01) | DRG 378 ==
LOC: JER 08:18 → JERBED 14:27 → J7W 21:17
PROVIDERS: ADMIT Internal Medicine; ATTEND Internal Medicine
PROC: 0DBN8ZX Excision of Sigmoid Colon, Via Natural or Artificial Opening Endoscopic, Diagnostic (ICD-10-PCS; principal; 2020-09-16 13:27)
DX: K57.31 Diverticulosis of large intestine without perforation or abscess with bleeding (principal); Z68.43 Body mass index [BMI] 50.0-59.9, adult; K55.9 Vascular disorder of intestine, unspecified; F43.10 Post-traumatic stress disorder, unspecified; F31.9 Bipolar disorder, unspecified; I10 Essential (primary) hypertension; K21.9 Gastro-esophageal reflux disease without esophagitis; R73.03 Prediabetes; E66.01 Morbid (severe) obesity due to excess calories; R50.9 Fever, unspecified; Z86.718 Personal history of other venous thrombosis and embolism; E78.5 Hyperlipidemia, unspecified; K40.90 Unilateral inguinal hernia, without obstruction or gangrene, not specified as recurrent; Z78.9 Other specified health status; K76.0 Fatty (change of) liver, not elsewhere classified; N20.0 Calculus of kidney; D72.829 Elevated white blood cell count, unspecified; K64.8 Other hemorrhoids; Z85.3 Personal history of malignant neoplasm of breast
CPT/HCPCS: 36415; 71045-TC-FY; 74174-TC; 80053; 81003; 82272; 82962; 83690; 84484; 85025; 85610; 85730; 86140; 86850; 86900; 86901; 87086; 93005; 93010; 99285-25; C9803; G0008; J0131; Q2036; Q9967; U0003

== ENCOUNTER 2022-09-11 16:13 | Emergency (ER) | payer OTHER ==
[2022-09-11 16:25] VITALS: BP 122/78; PULSE 101; RESP 18; TEMP 98.1; BMI 56.7
[2022-09-11] MEDS ORDERED: ACETAMINOPHEN 1000 MG/100 ML BAG IVPB ONE (17:03)
[2022-09-11] MEDS ORDERED: SODIUM CHLORIDE 0.9% 500 ML INFUS.BAG IV ONE (17:04)
[2022-09-11] MEDS ORDERED: ONDANSETRON 4 MG/2 ML VIAL ONE (18:00)
[2022-09-11] MEDS ORDERED: ACETAMINOPHEN INJECTION 100 ML IVPB ONE (18:00)
[2022-09-11] MEDS ORDERED: ONDANSETRON 4 MG/2 ML VIAL IVPB ONE (18:03)
[2022-09-11 18:36] LABS: BASO % 0.5 % (0-2.0); EOS % 0.9 % (0-4.5); HEMATOCRIT 44.7 % (32.4-45.2); HEMOGLOBIN 15.3 GM/dL (10.7-15.3); LYMPH % 22.7 % (8-40); MCH 31.2 pg (25.7-33.7); MCHC 34.2 g/dl (32.0-36.0); MEAN CELL VOLUME 91.2 fl (80-96); MEAN PLT VOLUME 8.7 fl (7.5-11.1); MONO % 7.6 % (3.8-10.2); NEUT % 68.3 % (42.8-82.8); PLATELET COUNT 377 10^3/uL (134-434); RDW 14.1 % (11.6-15.6)
[2022-09-11 19:00] LABS: CALCIUM 9.2 mg/dL (8.5-10.1)
[2022-09-11 19:01] LABS: ALBUMIN 3.6 g/dl (3.4-5.0); BLOOD UREA NITROGEN 15.3 mg/dL (7-18)
[2022-09-11 19:04] LABS: CREATININE 0.7 mg/dL (0.55-1.3)
[2022-09-11 19:05] LABS: BILIRUBIN,TOTAL 0.3 mg/dL (0.2-1); TOT PROT 7.9 g/dl (6.4-8.2)
[2022-09-11 19:18] LABS: LACTIC ACID 2.1 mmol/L (0.4-2.0)
[2022-09-11] MEDS ORDERED: KETOROLAC TROMETHAMINE 15 MG/ML VIAL IVPUSH ONE (20:40)
[2022-09-11] MEDS ORDERED: KETOROLAC TROMETHAMINE 15 MG/ML VIAL ONE (20:49)
[2022-09-11] MEDS ORDERED: AMOX TR/POT CLAV 875MG/125MG TABLETS (FP) PO ONE (21:38)
[2022-09-11] MEDS ORDERED: AMOX TR/POT CLAV 875MG/125MG TABLETS (FP) ONE (21:59)
[2022-09-11 22:25] LABS: URINE APPEARANCE CLEAR; URINE BILIRUBIN NEGATIVE (NEGATIVE); URINE COLOR YELLOW; URINE GLUCOSE (UA) NEGATIVE (NEGATIVE); URINE KETONE NEGATIVE (NEGATIVE)
[2022-09-11 22:26] LABS: PH,URINE 5.5 (5.0-8.0); URINE LEUK ESTERASE NEGATIVE (NEGATIVE); URINE NITRITE NEGATIVE (NEGATIVE); URINE PROTEIN TRACE (NEGATIVE)
== END 2022-09-11 22:48 | disposition home or self-care (01) ==
LOC: JER 16:13
PROC: 3E033NZ Introduction of Analgesics, Hypnotics, Sedatives into Peripheral Vein, Percutaneous Approach (ICD-10-PCS; principal; 2022-09-11)
PROC: 3E0333Z Introduction of Anti-inflammatory into Peripheral Vein, Percutaneous Approach (ICD-10-PCS; 2022-09-11)
PROC: 3E033GC Introduction of Other Therapeutic Substance into Peripheral Vein, Percutaneous Approach (ICD-10-PCS; 2022-09-11)
DX: K57.32 Diverticulitis of large intestine without perforation or abscess without bleeding (principal)
CPT/HCPCS: 36415; 74177-TC; 80053; 81003; 83605; 83690; 85025; 86850; 86900; 86901; 87040; 87086; 99285-25; Q9967

== ENCOUNTER 2022-09-15 20:00 | Emergency (ER) | payer OTHER ==
[2022-09-15 20:17] VITALS: RESP 20; TEMP 98.1; BMI 124.9
[2022-09-15] MEDS ORDERED: ACETAMINOPHEN 1000 MG/100 ML BAG IVPB ONE (20:51)
[2022-09-15] MEDS ORDERED: ACETAMINOPHEN INJECTION 100 ML IVPB ONE (21:26)
[2022-09-15 21:57] LABS: BASO % 0.7 % (0-2.0); EOS % 1.7 % (0-4.5); HEMATOCRIT 42.3 % (32.4-45.2); HEMOGLOBIN 14.3 GM/dL (10.7-15.3); LYMPH % 23.5 % (8-40); MCH 30.3 pg (25.7-33.7); MCHC 33.7 g/dl (32.0-36.0); MEAN CELL VOLUME 89.9 fl (80-96); MONO % 9.4 % (3.8-10.2); NEUT % 64.7 % (42.8-82.8); PLATELET COUNT 360 10^3/uL (134-434); RDW 14.1 % (11.6-15.6); WHITE BLOOD COUNT 9.1 K/mm3 (4.0-10.0)
[2022-09-15 22:05] LABS: INR 1.03 (0.83-1.09)
[2022-09-15 22:08] LABS: ACTIVATED PTT 37.3 SECONDS (25.2-36.5)
[2022-09-15 22:15] LABS: CALCIUM 9.4 mg/dL (8.5-10.1)
[2022-09-15 22:16] LABS: ALBUMIN 3.2 g/dl (3.4-5.0); BLOOD UREA NITROGEN 15.5 mg/dL (7-18)
[2022-09-15 22:19] LABS: CREATININE 0.8 mg/dL (0.55-1.3)
[2022-09-15 22:20] LABS: BILIRUBIN,TOTAL 0.3 mg/dL (0.2-1); TOT PROT 7.4 g/dl (6.4-8.2)
[2022-09-16 00:09] VITALS: BP 166/86; PULSE 83
== END 2022-09-16 00:11 | disposition home or self-care (01) ==
LOC: JER 20:00
PROC: 3E033NZ Introduction of Analgesics, Hypnotics, Sedatives into Peripheral Vein, Percutaneous Approach (ICD-10-PCS; principal; 2022-09-15)
DX: K57.92 Diverticulitis of intestine, part unspecified, without perforation or abscess without bleeding (principal); R10.9 Unspecified abdominal pain; Z20.822 Contact with and (suspected) exposure to COVID-19
CPT/HCPCS: 36415; 80053; 83605; 83690; 85025; 85610; 85730; 99284-25; C9803-CS; U0003; U0005

== ENCOUNTER 2023-06-29 10:55 | Emergency (ER) | payer OTHER ==
[2023-06-29] MEDS ORDERED: ACETAMINOPHEN 500 MG TABLET (FP) PO ONE (11:21)
[2023-06-29] MEDS ORDERED: LIDOCAINE 5% TOPICAL PATCH TP ONE (11:21)
[2023-06-29] MEDS ORDERED: diazePAM 5 MG TABLET PO ONE (11:25)
[2023-06-29] MEDS ORDERED: KETOROLAC TROMETHAMINE 30 MG/1 ML VIAL IM ONE (11:25)
[2023-06-29 11:28] VITALS: BP 134/58; PULSE 95; RESP 18; TEMP 98.1; BMI 60.8
[2023-06-29] MEDS ORDERED: LIDOCAINE 5% TOPICAL PATCH ONE (12:13)
[2023-06-29] MEDS ORDERED: KETOROLAC TROMETHAMINE 30 MG/1 ML VIAL ONE (12:13)
[2023-06-29] MEDS ORDERED: ACETAMINOPHEN 325 MG TABLET (FP) ONE (12:13)
[2023-06-29] MEDS ORDERED: diazePAM 5 MG TABLET ONE (12:13)
[2023-06-29] MEDS ORDERED: LIDOCAINE PATCH REMOVAL MC ONE (22:00)
== END 2023-06-29 13:12 | disposition home or self-care (01) ==
LOC: FER 10:55
PROC: 3E0233Z Introduction of Anti-inflammatory into Muscle, Percutaneous Approach (ICD-10-PCS; principal; 2023-06-29)
DX: M54.50 Low back pain, unspecified (principal); M79.10 Myalgia, unspecified site
CPT/HCPCS: 99284-25

== ENCOUNTER 2023-12-14 10:59 | Emergency (ER) | payer OTHER ==
[2023-12-14 11:25] VITALS: BP 153/80; PULSE 97; RESP 18; TEMP 98.9; BMI 56.3
[2023-12-14] MEDS ORDERED: ACETAMINOPHEN 325 MG TABLET (FP) ONE (12:13)
[2023-12-14] MEDS ORDERED: IBUPROFEN 400 MG TABLET (FP) PO ONE (12:14)
[2023-12-14] MEDS: IBUPROFEN 400 MG TABLET (FP) PO ONE (12:20)
[2023-12-14] MEDS: ACETAMINOPHEN 325 MG TABLET (FP) PO ONE (12:20)
== END 2023-12-14 12:30 | disposition home or self-care (01) ==
LOC: FER 10:59
DX: M27.2 Inflammatory conditions of jaws (principal); K04.7 Periapical abscess without sinus; K02.9 Dental caries, unspecified; K08.89 Other specified disorders of teeth and supporting structures
CPT/HCPCS: 99283-25

== ENCOUNTER 2025-03-06 17:06 | Observation (INO) | payer OTHER ==
[2025-03-06 18:42] LABS: EPI CELLS 7 /uL (0-25.1); HYALINE CASTS 1 /uL (0-3.1); URINE APPEARANCE CLEAR; URINE BACTERIA 5330 /uL (0-1359); URINE BILIRUBIN NEGATIVE (NEGATIVE); URINE COLOR YELLOW; URINE GLUCOSE (UA) NEGATIVE (NEGATIVE); URINE KETONE TRACE (NEGATIVE); URINE LEUK ESTERASE TRACE (NEGATIVE); URINE NITRITE POSITIVE (NEGATIVE); URINE PROTEIN NEGATIVE (NEGATIVE); URINE RBC 12 /uL (0-23.9); URINE UROBILINOGEN 1.0 mg/dL (0.2-1.0); URINE WBC 33 /uL (0-25.8)
[2025-03-06 18:44] LABS: ABSOLUTE IMMATURE GRANULOCYTES 0.03 x10^3/uL (0.0-0.031); BASOPHILS # 0.06 x10^3/uL (0.01-0.08); EOSINOPHIL % 1.3 % (0.7-5.8); EOSINOPHILS # 0.13 x10^3/uL (0.04-0.36); MCHC 32.1 g/dl (32.2-35.5); MEAN CELL VOLUME 94.0 fl (79.4-94.8); MEAN PLT VOLUME 10.8 fl (9.4-12.3); MONOCYTE # 1.22 x10^3/uL (0.24-0.86); MONOCYTE % 12.2 % (4.7-12.5); RDW 13.5 % (12.4-16.4)
[2025-03-06 18:57] LABS: GLUCOSE,RANDOM 96.0 mg/dL (74-106)
[2025-03-06 18:58] LABS: TOT PROT 7.4 g/dl (6.4-8.2)
[2025-03-06 19:00] LABS: ALK PHOS 110.0 U/L (40-150)
[2025-03-06] MEDS ORDERED: CEFTRIAXONE 1 GM/50 ML BAG ONE (19:01)
[2025-03-06 19:03] LABS: CREATININE 0.81 mg/dL (0.55-1.3); SGOT/AST 24.0 U/L (5-34); SGPT/ALT 20.0 U/L (0-55)
[2025-03-06 20:17] LABS: CO2 21.0 mmol/L (21-32); N-TERMINAL BNP 38.1 pg/mL (0-299.9)
[2025-03-06] MEDS: CEFTRIAXONE 1 GM in DEXTROSE 5%-WATER - 50 ML IVPB ONE (20:18)
[2025-03-06] MEDS ORDERED: FUROSEMIDE 40 MG/4 ML INJECTABLE VIAL ONE (21:08)
[2025-03-06] MEDS: FUROSEMIDE 40 MG/4 ML INJECTABLE VIAL IVPUSH ONE (21:26)
[2025-03-06 21:47] LABS: HCV DIAGNOSTIC IN-HOUSE W/RFLX NON-REACTIVE (NONREACTIVE); HIV INTERPRETATION NEGATIVE (NEGATIVE)
[2025-03-07 01:17] VITALS: BMI 58.1
[2025-03-07] MEDS: ACETAMINOPHEN 500 MG TABLET (FP) PO PRN (02:43)
[2025-03-07] MEDS: FUROSEMIDE 40 MG/4 ML INJECTABLE VIAL IVPUSH SCH (06:02)
[2025-03-07 07:38] LABS: MCHC 31.7 g/dl (32.2-35.5); MEAN CELL VOLUME 93.7 fl (79.4-94.8); MEAN PLT VOLUME 10.9 fl (9.4-12.3); RDW 13.6 % (12.4-16.4)
[2025-03-07 09:01] LABS: CO2 30.0 mmol/L (21-32); CREATININE 0.89 mg/dL (0.55-1.3); GLUCOSE,RANDOM 114.0 mg/dL (74-106)
[2025-03-07 09:02] LABS: ALK PHOS 88.0 U/L (40-150); SGOT/AST 18.0 U/L (5-34); SGPT/ALT 17.0 U/L (0-55); TOT PROT 6.9 g/dl (6.4-8.2)
[2025-03-07] MEDS: ENOXAPARIN NA (PORCINE) 40 MG/0.4 ML DISP.SYRIN SQ SCH (09:37)
[2025-03-07] MEDS: VENLAFAXINE HCL 75 MG E.R. CAPSULES PO SCH (09:38)
[2025-03-07] MEDS: CEFTRIAXONE 1 GM in DEXTROSE 5%-WATER - 50 ML IVPB SCH (18:34)
[2025-03-08 06:28] LABS: MCHC 31.9 g/dl (32.2-35.5); MEAN CELL VOLUME 93.9 fl (79.4-94.8); MEAN PLT VOLUME 10.8 fl (9.4-12.3); RDW 13.2 % (12.4-16.4)
[2025-03-08 06:49] LABS: GLUCOSE,RANDOM 128.0 mg/dL (74-106)
[2025-03-08 06:50] LABS: TOT PROT 7.0 g/dl (6.4-8.2)
[2025-03-08 06:51] LABS: CO2 28.0 mmol/L (21-32)
[2025-03-08 06:52] LABS: ALK PHOS 91.0 U/L (40-150)
[2025-03-08 06:55] LABS: CREATININE 0.88 mg/dL (0.55-1.3); SGOT/AST 18.0 U/L (5-34); SGPT/ALT 19.0 U/L (0-55)
[2025-03-08 16:04] LABS: LDL CHOLESTEROL (ONLY SJRH) 163.0 mg/dL (5-100)
[2025-03-08] MEDS: INSULIN ASPART SLIDING SCALE (NOVOLOG) 1 VIAL SQ SCH (17:14)
[2025-03-09 07:09] LABS: ABSOLUTE IMMATURE GRANULOCYTES 0.03 x10^3/uL (0.0-0.031); BASOPHILS # 0.07 x10^3/uL (0.01-0.08); EOSINOPHIL % 3.3 % (0.7-5.8); EOSINOPHILS # 0.22 x10^3/uL (0.04-0.36); MCHC 32.1 g/dl (32.2-35.5); MEAN CELL VOLUME 92.9 fl (79.4-94.8); MEAN PLT VOLUME 10.7 fl (9.4-12.3); MONOCYTE # 0.81 x10^3/uL (0.24-0.86); MONOCYTE % 12.0 % (4.7-12.5); RDW 13.2 % (12.4-16.4)
[2025-03-09 07:21] LABS: GLUCOSE,RANDOM 132.0 mg/dL (74-106); TOT PROT 7.4 g/dl (6.4-8.2)
[2025-03-09 07:22] LABS: CO2 27.0 mmol/L (21-32)
[2025-03-09 07:24] LABS: ALK PHOS 93.0 U/L (40-150)
[2025-03-09 07:26] LABS: SGPT/ALT 23.0 U/L (0-55)
[2025-03-09 07:27] LABS: CREATININE 0.87 mg/dL (0.55-1.3); SGOT/AST 19.0 U/L (5-34)
[2025-03-09 15:19] VITALS: RESP 18
[2025-03-09 17:40] VITALS: BP 112/79; PULSE 83; TEMP 98.4
== END 2025-03-09 18:09 | disposition home health service (06) ==
LOC: JER 17:06 → JERBED 20:44 → J4W 03-07 00:11
PROVIDERS: ADMIT Hospitalist; ATTEND Internal Medicine
PROC: 3E03329 Introduction of Other Anti-infective into Peripheral Vein, Percutaneous Approach (ICD-10-PCS; principal; 2025-03-06)
PROC: 3E023GC Introduction of Other Therapeutic Substance into Muscle, Percutaneous Approach (ICD-10-PCS; 2025-03-06)
PROC: 3E033GC Introduction of Other Therapeutic Substance into Peripheral Vein, Percutaneous Approach (ICD-10-PCS; 2025-03-06)
DX: I50.30 Unspecified diastolic (congestive) heart failure (principal); N39.0 Urinary tract infection, site not specified; E78.5 Hyperlipidemia, unspecified; E11.9 Type 2 diabetes mellitus without complications; M79.662 Pain in left lower leg; M79.661 Pain in right lower leg; F31.9 Bipolar disorder, unspecified; G47.33 Obstructive sleep apnea (adult) (pediatric); E66.01 Morbid (severe) obesity due to excess calories; M19.90 Unspecified osteoarthritis, unspecified site; Z85.3 Personal history of malignant neoplasm of breast; Z88.5 Allergy status to narcotic agent; Z90.49 Acquired absence of other specified parts of digestive tract
CPT/HCPCS: 36415; 71045-TC-FY; 73590-TC-LT-FY; 73590-TC-RT-FY; 76937; 80048; 80053; 80061; 81003; 82962; 83036; 83735; 83880; 84100; 84436; 84443; 84484; 85025; 85027; 86803; 87086; 87389; 93005; 93010; 93306-TC; 93970-TC; 94660; 96365; 96366; 96372; 96375; 96376; 97116-GP; 97162-GP; 99285-25; G0378